=== PATIENT | female | born 1995 | race Caucasian/White ===

== ENCOUNTER → 2019-09-12 17:33 | Outpatient (BNVA) | payer MEDICAID, SELFPAY | PROVIDERS: Family Provider Nurse Practitioner; PCP Nurse Practitioner; Visit Provider Nurse Practitioner | DX: J11.1 Influenza due to unidentified influenza virus with other respiratory manifestations (principal) | CPT/HCPCS: 87804 ==

== ENCOUNTER → 2019-09-17 13:16 | Outpatient (BNVA) | payer MEDICAID, SELFPAY | PROVIDERS: Family Provider Nurse Practitioner; PCP Nurse Practitioner; Visit Provider Nurse Practitioner Women's Health | DX: O99.012 Anemia complicating pregnancy, second trimester (principal); O26.892 Other specified pregnancy related conditions, second trimester; Z67.91 Unspecified blood type, Rh negative; F41.9 Anxiety disorder, unspecified; Z14.1 Cystic fibrosis carrier; O21.9 Vomiting of pregnancy, unspecified; K52.9 Noninfective gastroenteritis and colitis, unspecified; Z3A.16 16 weeks gestation of pregnancy | CPT/HCPCS: 81000 ==

== ENCOUNTER → 2019-10-15 13:03 | Outpatient (BNVA) | payer MEDICAID, SELFPAY | PROVIDERS: Family Provider Nurse Practitioner; PCP Nurse Practitioner; Visit Provider Obstetrics & Gynecology | DX: Z34.82 Encounter for supervision of other normal pregnancy, second trimester (principal) | CPT/HCPCS: 76805; 80048; 84443; 85027 ==

== ENCOUNTER → 2019-10-16 17:14 | Outpatient (BNVA) | payer MEDICAID, SELFPAY | PROVIDERS: Family Provider Nurse Practitioner; PCP Nurse Practitioner; Visit Provider Nurse Practitioner | DX: J45.909 Unspecified asthma, uncomplicated (principal); J45.21 Mild intermittent asthma with (acute) exacerbation; R05 Cough | CPT/HCPCS: 87804 ==

== ENCOUNTER 2019-10-17 11:05 | Outpatient (CLI) | payer MEDICAID, SELFPAY ==
[2019-10-17 12:00] LABS: Add Urine Microscopic? NO
[2019-10-17 12:10] LABS: Bilirubin Urine 1+ (NEGATIVE); Blood Urine Neg (Negative); Glucose Urine UA Norm (Normal); Ketones Urine 1+ (Negative); Leukocyte Esterase Urine Negative (Negative); Nitrate Urine Negative (Negative); Protein Urine Neg (Negative); Specific Gravity, Urine 1.025 (1.005-1.030); Urine Appearance Clear (CLEAR); Urine Color Yellow (Yellow); Urobilinogen Urine 1 mg/dL (Negative); pH Urine 5 (5-7)
--- NOTE | 2019-10-17 12:16 | US_ITS ---
WS: [id number] Limited pelvic ultrasound for cervical length, 10/17/2019 Clinical Data: Cervical length Comparison: OB ultrasound, 10/15/2019 Findings: The cervical length was 4.32 cm. No placenta previa was seen. US/US OB transvaginal [id number] Impression: Cervical length of 4.32 cm.
[2019-10-17 12:25] VITALS: BMI 20.7
[2019-10-17 12:26] VITALS: RESP 16; TEMP 37.1
[2019-10-17 12:50] VITALS: BP 110/56; PULSE 83
--- NOTE | 2019-10-17 12:53 | PC.NURSE ---
Dr. Wong in room and performs a speculum exam as well as endocervical swab. Dr. Wong then performed cervical exam. Dr. Wong then also performed a bedside ultrasound mendes abdominally as well as trans labially.
--- NOTE | 2019-10-17 12:55 | P.TNLD_ITS ---
OB L&D Triage Visit Information: Date of evaluation: 10/17/19 Evaluation: Laboratory results: Laboratory Tests 10/17/19 11:50 Urine Color Yellow Urine Appearance Clear Urine pH 5 Ur Specific Gravit y 1.025 Urine Protein Neg Urine Glucose (UA) Norm Urine Ketones 1+ H Urine Occult Blood Neg Urine Nitrate Negative Urine Bilirubin 1+ H Urine Urobilinogen 1 H Ur Leukocyte Angela ase Negative Vital signs: Vital Signs - 24 hr 10/17/19 12:26 10/17/19 12:50 Temperature 98.7 F Pulse Rate 83 Respiratory Rate 16 Blood Pressure 110/56 Care ARIN Calculator Estimated Delivery Date Method Current WG Current Estimate 03/03/20 LMP (Certain) 20w 2d Comments: 24-year-old lady with EDC of 03/03/2020 based on 6-week ultrasound. Patient has previously been seen at [facility]. Presents to labor and delivery as a walk-in with a complaint of lower back pain since last night states that she has had a watery type discharge and states that she has had some spotting on toilet paper. Denies any fevers question chills. Has had nausea and vomiting this also has history of iron deficiency anemia previous with uterine contractions treated with Procardia delivered at 37 weeks, history of molar , 2 term vaginal deliveries uncomplicated. Was recently seen by her PCP and diagnosed with bronchitis placed on amoxicillin. Is of note HER-2 daughters tested positive for influenza A patient tested negative for influenza A. She reports movement denies any regular uterine contractions. Does have urinary frequency no dysuria no flank pain. Review of systems, unremarkable except for above Patient denies any alcohol tobacco or drug use or HIV risk factors. Allergies see record Medications see record. Physical examination: Vital signs are stable she is afebrile Alert and oriented no acute distress thin white female HEENT grossly normal Neck supple nontender nodes no masses Lungs clear to auscultation Heart regular sinus rhythm Abdomen thin, gravid uterine fundus U- 1 nontender to palpation. No flank tenderness. No palpable contractions. Some mild suprapubic tenderness to palpation Back no CVA tenderness patient's low back pain is located in the upper buttocks bilaterally. Extremities grossly intact no edema Pelvic examination: External genitalia unremarkable, no lesions no blood no discharge. Speculum examination shows normal vaginal vault physiologic type discharge cervix appears to be long and closed no lesions no unusual discharge. Bimanual examination shows cervix to be closed nontender. Ultrasound: Bedside transabdominal ultrasound by me shows viable intrauterine good movement cardiac activity good tone. Normal amniotic fluid placenta is posterior. Transvaginal ultrasound performed by x-ray tech and visualized by myself cervix is long closed measuring 4.1 cm with no funneling. Placenta does appear to be close to if not perhaps laying over the cervical loss would recommend repeat ultrasound in 4 weeks. Labs: Clean-catch UA obtained specific gravity 1025- nitrites negative leukocytes +1 ketones Vaginal/endocervical cultures and GC chlamydia sent. Expected Delivery Route/Plan vaginal Specific Issues/Plans anemia hx uterine contractions OB Visit Log Initial Weight: 50.802 kg Date -?-?-?-?-?-?-?-?-?-?-?- EGA Weight BP Albumin -?-?-?-?-?-?-?-?-?-?-?-?- Glucose Nitrate -?-?-?-?-?-?-?-?-?-?-?-?- Blood Fundal Ht PRES HR Movement Edema Dilation Effacement Station 09/17/19 -?-?-?-?-?-?-?-?-?-?-?- 16w 0d 52.787 kg (+1.984 kg) 100/64 Neg (Negativ e) -?-?-?-?-?-?-?-?-?-?-?-?- Norm (Normal) Negative (Negat manuel) -?-?-?-?-?-?-?-?-?-?-?-?- 152 decreased absent 10/17/19 -?-?-?-?-?-?-?-?-?-?-?- 20w 2d 54.885 kg (+4.082 kg) 110/56 99/65 Neg (Negative) -?-?-?-?-?-?-?-?-?-?-?-?- Norm (Normal) Negative (Negat manuel) -?-?-?-?-?-?-?-?-?-?-?-?- 145 Notes Visit Date: 10/17/19 No visit notes to display Visit Date: 09/17/19 JESIKA @ 16.0 WG - anemia; compliant with iron; reviewed constipation - SAB precautions discussed - Panorama completed - Anatomy scan at next visit; discussed policy Tavia Silveira APN, CJ on 09/17/19 Final Diagnosis Final Diagnosis (1) Antepartum bleeding, second trimester: Plan: Ultrasound today shows possible low-lying posterior placenta recommend repeat ultrasound in 4 weeks. 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 Recommend consideration of sending placenta to pathology Status: Inactive Code(s): O09.A2 - Supervision of with history of molar , second trimester (3) Low lying placenta nos or without hemorrhage, second trimester: Plan: postdelivery patient has had self-described spotting on toilet tissue no active bleeding noted at this time question low-lying placenta recommend continue to follow Status: Acute Code(s): O44.42 - Low lying placenta NOS or without hemorrhage, second trimester Coding Level of Care Code Acute Certified Family Mediator for g Fwd Medical Decision Making Low Complexity Diagnoses Antepartum bleeding, second trimester O46.92 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 Also discussed her anemia recommend consideration of referral to hematology.
[2019-10-17 13:04] VITALS: BP 99/65; PULSE 87
[2019-10-17 13:19] VITALS: BP 98/54; PULSE 75
[2019-10-17 13:36] VITALS: BP 95/66; PULSE 91
== END 2019-10-17 13:39 | disposition home or self-care (01) ==
LOC: OPOB 11:21 → OBGYN 13:30 → OPOB 10-18 07:59 → NUR 10-18 07:59 → OPOB 10-18 08:05
PROVIDERS: Family Provider Nurse Practitioner; PCP Nurse Practitioner; Visit Provider Obstetrics & Gynecology Female Pelvic Medicine and Reconstructive Surgery
DX: O44.42 Low lying placenta NOS or without hemorrhage, second trimester (principal); O09.A2 Supervision of pregnancy with history of molar pregnancy, second trimester
CPT/HCPCS: 12345; 76817; 81003; 87491; 87591; 99211

== ENCOUNTER → 2019-10-18 15:03 | Outpatient (BNVA) | payer MEDICAID, SELFPAY | PROVIDERS: Family Provider Nurse Practitioner; PCP Nurse Practitioner; Visit Provider Obstetrics & Gynecology | DX: Z34.82 Encounter for supervision of other normal pregnancy, second trimester (principal) | CPT/HCPCS: 81000; 81003 ==

== ENCOUNTER 2019-10-24 07:22 | Outpatient (RCR) | payer MEDICAID, SELFPAY ==
[2019-10-24 06:47] VITALS: BMI 20.5
[2019-10-24 07:40] VITALS: BP 104/65; PULSE 95; RESP 18; TEMP 36.8; O2SAT 100
[2019-10-31 07:17] VITALS: BP 108/61; PULSE 104; RESP 16; TEMP 36.8; O2SAT 100
[2019-11-07 07:20] VITALS: BP 121/68; PULSE 85; RESP 18; TEMP 36.1; O2SAT 100
== END 2019-11-09 23:59 | disposition home or self-care (01) ==
LOC: GILAB 07:22
PROVIDERS: Family Provider Nurse Practitioner; PCP Family Medicine; Visit Provider Internal Medicine
DX: K90.9 Intestinal malabsorption, unspecified (principal)
CPT/HCPCS: 96365; J1439

== ENCOUNTER → 2019-11-09 13:58 | Outpatient (BNVA) | payer MEDICAID, SELFPAY | PROVIDERS: Family Provider Nurse Practitioner; PCP Family Medicine; Visit Provider Nurse Practitioner | DX: J06.9 Acute upper respiratory infection, unspecified (principal); R05 Cough | CPT/HCPCS: 87804 ==

== ENCOUNTER → 2019-11-15 14:56 | Outpatient (BNVA) | payer MEDICAID, SELFPAY | PROVIDERS: Family Provider Nurse Practitioner; PCP Family Medicine; Referring Provider Obstetrics & Gynecology; Visit Provider Obstetrics & Gynecology | DX: Z36.89 Encounter for other specified antenatal screening (principal); Z3A.24 24 weeks gestation of pregnancy | CPT/HCPCS: 76816 ==

== ENCOUNTER → 2019-11-19 08:04 | Outpatient (BNVA) | payer MEDICAID, SELFPAY | PROVIDERS: Family Provider Nurse Practitioner; PCP Family Medicine; Visit Provider Obstetrics & Gynecology | DX: O99.340 Other mental disorders complicating pregnancy, unspecified trimester (principal) | CPT/HCPCS: 81003 ==

== ENCOUNTER → 2019-12-16 11:44 | Outpatient (BNVA) | payer MEDICAID, SELFPAY | PROVIDERS: Family Provider Nurse Practitioner; PCP Family Medicine; Visit Provider Obstetrics & Gynecology | DX: Z34.83 Encounter for supervision of other normal pregnancy, third trimester (principal); O26.892 Other specified pregnancy related conditions, second trimester; Z67.91 Unspecified blood type, Rh negative; Z34.90 Encounter for supervision of normal pregnancy, unspecified, unspecified trimester; Z34.82 Encounter for supervision of other normal pregnancy, second trimester; O99.012 Anemia complicating pregnancy, second trimester; Z14.1 Cystic fibrosis carrier; J45.20 Mild intermittent asthma, uncomplicated; F32.9 Major depressive disorder, single episode, unspecified; F41.9 Anxiety disorder, unspecified | CPT/HCPCS: 81000; 82950; 85027; 86850 ==

== ENCOUNTER → 2019-12-31 15:28 | Outpatient (BNVA) | payer MEDICAID, SELFPAY | PROVIDERS: Family Provider Nurse Practitioner; PCP Family Medicine; Visit Provider Obstetrics & Gynecology | DX: Z34.83 Encounter for supervision of other normal pregnancy, third trimester (principal) | CPT/HCPCS: 81000 ==

== ENCOUNTER 2020-01-11 13:18 | Emergency (ER) | payer MEDICAID, SELFPAY ==
[2020-01-11 13:24] VITALS: BP 101/67; PULSE 106; RESP 18; TEMP 36.9; O2SAT 97; BMI 22.3
[2020-01-11 13:29] VITALS: BP 105/64; PULSE 83; RESP 18; O2SAT 97
--- NOTE | 2020-01-11 13:40 | W.ED.GENADLT ---
HPI - General Adult General: Chief complaint: General Medical Stated complaint: SENT BY DOCTOR Time Seen by Provider: 01/11/20 13:32 Source: patient Mode of arrival: ambulatory Limitations: no limitations History of Present Illness: HPI narrative: 24-year-old female who is currently 35 weeks states she has had a hemorrhoid. She states she has been having some pain with a hemorrhoid. Denies any fevers. She has no complaints. Severity scale (1-10): 3 Quality: sharp Relieving factors: none Exacerbating factors: none Associated symptoms: Deny chest pain, dyspnea, headache(s) or rash Review of Systems Const: Denies: fever, chills, body aches or change in appetite Eyes: Denies: blurry vision or eye discomfort ENMT: Denies: throat pain or dental pain Card: Denies: chest pain Resp: Denies: shortness of breath GI: Reports: painful bowel movements : Denies: painful urination Musc: Denies: neck pain or back pain Skin/Breast: Denies: rash Neuro: Denies: headache Psych: Denies: depression Ish/Lymph: Denies: easy bruising All/Imm: Denies: hives PFSH ED PFSH: Social History Smoking and tobacco status: never smoked Alcohol intake: former Additional social history: - Tobacco Use: Smoked socially for three months in 2012; denies any tobacco use since then Drug Use: Denies Alcohol Use: Social alcohol use prior to Work/Study Status: Stay at home mother Physical Exam Const: COMMON NORMALS: no apparent distress, oriented x3 and healthy appearing HENMT: COMMON NORMALS: normocephalic and head/scalp atraumatic HEAD & SCALP: normocephalic and atraumatic Eye: COMMON NORMALS: PERRL and EOMs intact bilaterally PUPIL: Yes PERRL Neck/C-Spine: COMMON NORMALS: full ROM and supple Chest: COMMONS NORMALS: inspection of chest normal and palpation of chest normal Resp: COMMON NORMALS: normal respiratory effort, no retractions, no use of accessory muscles and clear to auscultation bilaterally AUSCULTATION: clear to auscultation bilaterally Cardio: COMMON NORMALS: regular rate, regular rhythm and no murmurs RATE: regular rate RHYTHM: regular rhythm GI: COMMON NORMALS: normal to inspection, nondistended, normoactive bowel sounds, soft to palpation, non-tender and no masses PALPATION: Yes soft OTHER: 1 hemorrhoid noted that is nonthrombosed. Extremity: COMMON NORMALS: normal to inspection and full ROM Neuro: COMMON NORMALS: oriented x3, moves all extremities and no focal motor deficits Psych: COMMON NORMALS: mental status grossly normal, thought process normal and cooperative THOUGHT PROCESS: normal thought process Skin: COMMON NORMALS: no rashes or lesions noted and no wounds GENERAL SKIN EXAM: no rashes or lesions noted Course Vital Signs: Vital signs: Vital Signs Temperature 98.4 F 01/11/20 13:24 Pulse Rate 83 01/11/20 13:29 Respiratory Rate 18 01/11/20 13:29 Blood Pressure 105/64 01/11/20 13:29 Pulse Oximetry 97 01/11/20 13:29 MDM - General Adult MDM Narrative: Medical decision making narrative: Patient presents here with hemorrhoid that is not thrombosed. She has no complaints. Will place patient on Anusol and she is to take stool softeners [id number]. She is stable for discharge and return if worsening. Discharge Plan Discharge Patient Disposition: Home, Self-Care Clinical Impression: Hemorrhoid Qualifiers: Hemorrhoid type: unspecified Qualified Code(s): K64.9 - Unspecified hemorrhoids Condition: Stable Prescriptions: New Anusol-HC 2.5 % cream with perineal applicator 1 applic [place] Q8H PRN (Reason: hemorrhoids) 21 Days Qty: 30 RF: 1 No Action albuterol sulfate 2.5 mg /3 mL (0.083 %) solution for nebulization 2.5 mg INHALATION Q4H PRN (Reason: shortness of breath or wheezing) Qty: 90 RF: 0 albuterol sulfate [ProAir HFA] 90 mcg/actuation HFA aerosol inhaler See Rx Instructions INHALATION .COMPLEX PRN (Reason: shortness of breath or wheezing) Qty: 8.5 RF: 0 prenat.vits,gualberto,qhi-khui-whqoj Tablet 1 tab PO ONCE RF: 0 omeprazole 20 mg capsule,delayed release(DR/EC) 20 mg PO DAILY Qty: 30 RF: 0 Discharge Orders: Discharge Order (Routine); Ordered 01/11/20 Ordered By: Prachi Stark Referrals: Samra Montgomery FNP [Family Provider] - Gui Escalera MD [Primary Care Provider] - Discharge Diet: Advance as tolerated Discharge Activity: Resume usual activity Patient Instructions: Hemorrhoids (ED) Coding Level of Care Code ED Orthotic And Prosthetic Technician for Adelina Ahuja
== END 2020-01-11 13:49 | disposition home or self-care (01) ==
LOC: ER 14:06
PROVIDERS: Emergency Provider Emergency Medicine; Family Provider Nurse Practitioner; PCP Family Medicine
DX: O22.43 Hemorrhoids in pregnancy, third trimester (principal); Z3A.35 35 weeks gestation of pregnancy; Z87.891 Personal history of nicotine dependence
CPT/HCPCS: 12345; 99282

== ENCOUNTER → 2020-01-13 15:38 | Outpatient (BNVA) | payer MEDICAID, SELFPAY | PROVIDERS: Family Provider Nurse Practitioner; PCP Family Medicine; Visit Provider Obstetrics & Gynecology | DX: O09.893 Supervision of other high risk pregnancies, third trimester (principal); K64.9 Unspecified hemorrhoids; O99.119 Other diseases of the blood and blood-forming organs and certain disorders involving the immune mechanism complicating pregnancy, unspecified trimester; D69.6 Thrombocytopenia, unspecified; F41.9 Anxiety disorder, unspecified; F32.9 Major depressive disorder, single episode, unspecified; R51 Headache; J45.20 Mild intermittent asthma, uncomplicated; Z14.1 Cystic fibrosis carrier | CPT/HCPCS: 81000 ==

== ENCOUNTER → 2020-01-27 16:14 | Outpatient (BNVA) | payer MEDICAID, SELFPAY | PROVIDERS: Family Provider Nurse Practitioner; PCP Family Medicine; Visit Provider Obstetrics & Gynecology | DX: D69.6 Thrombocytopenia, unspecified (principal); O99.119 Other diseases of the blood and blood-forming organs and certain disorders involving the immune mechanism complicating pregnancy, unspecified trimester; O09.893 Supervision of other high risk pregnancies, third trimester; F41.9 Anxiety disorder, unspecified; F32.9 Major depressive disorder, single episode, unspecified; R51 Headache; J45.20 Mild intermittent asthma, uncomplicated; Z14.1 Cystic fibrosis carrier; K90.9 Intestinal malabsorption, unspecified; O99.012 Anemia complicating pregnancy, second trimester; O26.892 Other specified pregnancy related conditions, second trimester | CPT/HCPCS: 81000; 85025 ==

== ENCOUNTER → 2020-02-05 16:01 | Outpatient (BNVA) | payer MEDICAID, SELFPAY | PROVIDERS: Family Provider Nurse Practitioner; PCP Family Medicine; Visit Provider Obstetrics & Gynecology | DX: O09.893 Supervision of other high risk pregnancies, third trimester (principal); Z3A.00 Weeks of gestation of pregnancy not specified | CPT/HCPCS: 81000; 87081 ==

== ENCOUNTER 2020-02-07 14:27 | Outpatient (CLI) | payer MEDICAID, SELFPAY ==
[2020-02-07] VITALS (8 sets, daily range): BP systolic 0–118; BP diastolic 0–68; PULSE 81–120; RESP 16; TEMP 36.3; BMI 23.3
[2020-02-07 15:05] LABS: Nitrazine Paper, PH Negative
[2020-02-07 15:22] LABS: Actim Prom Negative
[2020-02-07 15:37] LABS: Bilirubin Urine Neg (NEGATIVE); Blood Urine Neg (Negative); Glucose Urine UA Norm (Normal); Ketones Urine Negative (Negative); Leukocyte Esterase Urine 1+ (Negative); Nitrate Urine Negative (Negative); Protein Urine Neg (Negative); Urine Appearance Clear (CLEAR); Urine Color Yellow (Yellow); Urobilinogen Urine Norm (Negative); pH Urine 7 (5-7)
[2020-02-07 15:38] LABS: Add Urine Culture? No; Bacteria Urine TRACE; RBC Urine 0-4 /hpf (0-2); WBC Urine 15-25 /hpf (0-5)
[2020-02-07] MEDS: terbutaline 1 mg/mL INJ 0.25 MG SUBCUT (15:52)
== END 2020-02-07 17:00 | disposition home or self-care (01) ==
LOC: OPOB 14:29 → OBGYN 14:30
PROVIDERS: Obstetrics & Gynecology; PCP Family Medicine; Visit Provider Obstetrics & Gynecology
DX: O26.899 Other specified pregnancy related conditions, unspecified trimester (principal); Z3A.00 Weeks of gestation of pregnancy not specified; R10.9 Unspecified abdominal pain
CPT/HCPCS: 59025; 81001; 83986; 84112; 96372; 99211; J3105

== ENCOUNTER → 2020-02-10 15:38 | Outpatient (BNVA) | payer MEDICAID, SELFPAY | PROVIDERS: PCP Family Medicine; Visit Provider Obstetrics & Gynecology | DX: O09.893 Supervision of other high risk pregnancies, third trimester (principal); O99.119 Other diseases of the blood and blood-forming organs and certain disorders involving the immune mechanism complicating pregnancy, unspecified trimester; D69.6 Thrombocytopenia, unspecified; F41.9 Anxiety disorder, unspecified; F32.9 Major depressive disorder, single episode, unspecified; R51 Headache; J45.20 Mild intermittent asthma, uncomplicated; Z14.1 Cystic fibrosis carrier; K90.9 Intestinal malabsorption, unspecified; O99.012 Anemia complicating pregnancy, second trimester; O26.892 Other specified pregnancy related conditions, second trimester; Z67.91 Unspecified blood type, Rh negative; Z3A.00 Weeks of gestation of pregnancy not specified | CPT/HCPCS: 81000 ==

== ENCOUNTER 2020-02-12 17:36 | Outpatient (CLI) | payer MEDICAID, SELFPAY ==
[2020-02-12] VITALS (7 sets, daily range): BP systolic 0–108; BP diastolic 0–78; PULSE 72–112; RESP 16; TEMP 36.8; BMI 23.0
== END 2020-02-12 19:45 | disposition home or self-care (01) ==
LOC: OPOB 17:36 → OBGYN 19:41
PROVIDERS: PCP Family Medicine; Visit Provider Obstetrics & Gynecology
DX: O62.2 Other uterine inertia (principal); Z3A.00 Weeks of gestation of pregnancy not specified
CPT/HCPCS: 59025; 99211

== ENCOUNTER 2020-02-16 19:28 | Inpatient (IN) | payer MEDICAID, SELFPAY ==
[2020-02-16] VITALS (27 sets, daily range): BP systolic 0–131; BP diastolic 0–77; PULSE 63–102; RESP 15–16; TEMP 36.6–37; BMI 23.0
--- NOTE | 2020-02-16 18:10 | PC.NURSE ---
Pt up to bathroom at this time. Pt reports having something running down her leg when standing up, but is unable to tell if it is urine or amniotic fluid.
--- NOTE | 2020-02-16 18:31 | P.PCN_ITS ---
Procedure/Consent Procedure Narrative: NONSTRESS TEST: Place of test: [facility] [place]-L&D Indication: 25-year-old 6 para 2-0-3-2 at 37 weeks and 5 days gestation, abdominal pain, Date and time of test: 02/16/2020, 4:45 PM Baseline: 130 Variability: Moderate variability Accelerations: Accelerations present Decelerations: No decelerations Tocometry: Contractions every 2 to 4 minutes INTERPRETATION: NST reactive, reassuring status, continue kick counts
[2020-02-16 18:44] LABS: Actim Prom Positive
[2020-02-16] MEDS: lactated ringers 1,000 ML 999 ML IV (20:19)
[2020-02-16 20:46] LABS: Basophils % 0.2 %; Eosinophils # 0.1 10^3/uL (0.0-0.8); Eosinophils % 0.7 %; Hematocrit 44.5 % (37.0-47.0); Hemoglobin 14.6 g/dL (11.5-15.3); Lymphocytes # 1.7 10^3/uL (0.8-4.8); Lymphocytes % 16.5 %; Mean Corpuscular HGB Conc 32.8 g/dL (30.0-36.0); Mean Corpuscular Hemoglobin 31.1 pg (28.0-34.0); Mean Corpuscular Volume 94.9 fL (81-99); Mean Platelet Volume 10.5 fL (7.4-10.4); Monocytes # 0.5 10^3/uL (0.2-0.9); Monocytes % 5.4 %; Neutrophils # 7.7 10^3/uL (1.8-7.7); Neutrophils % 76.5 %; Nucleated Red Blood Cells % 0 %; Platelet Count 131 10^3/cmm (130-400); Red Blood Count 4.69 10^6/uL (4.1-5.3); Red Cell Distribution Width 13.1 % (12.1-15.1)
[2020-02-17] VITALS (51 sets, daily range): BP systolic 0–121; BP diastolic 0–82; PULSE 53–92; RESP 14–22; TEMP 36.4–37; O2SAT 72–99
[2020-02-17] MEDS: dextrose 5%-lactated ringers 1,000 ML 125 ML IV (01:30)
[2020-02-17] MEDS: fentaNYL 50 mcg/mL INJ 2mL IV ×3 (01:37→08:15)
[2020-02-17] MEDS: oxytocin 30 UNIT/500 ML BAG IV (04:35)
[2020-02-17] MEDS: lactated ringers 1,000 ML 999 ML IV (08:52)
[2020-02-17] MEDS: acetaminophen 325 mg Tablet 650 MG PO ×2 (11:27→17:52)
--- NOTE | 2020-02-17 11:29 | PM.DELIVERY ---
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 Mcgarry is a 25-year-old 6 para 2-0-3-2 at 37 weeks and 5 days gestation who presented to labor and delivery on 02/16/2020 with reports of contractions. On initial evaluation she was noted to be 1 cm, 40% effaced and -1 station with a posterior cervix which was minimal change compared to when she was seen in the clinic a week before. tracing was category 1 with regular contractions every 2 to 3 minutes. She was observed for 3 hours and made no cervical change however did mention leaking of fluid and active PROM test performed was positive-spontaneous rupture of membranes/premature rupture of membranes was at 6:10 PM on 02/16/2020.. She continued to contract every 2 to 4 minutes and made minimal cervical change to 2 cm 40% and -1 station. tracing continued to do category 1 with occasional variable decelerations which resolved with position change. She made no further cervical change after about 6 hours of observation and as a result Pitocin was started at 4 AM titrated to a maximum of 13 mIU. With this she started to grow more uncomfortable and was 4 cm at 6:45 AM on 02/17/2020. She was noted to have a fore bag at this time and rupture of this fore back was performed at 7:30 AM on 02/17/2020 with clear fluid. She was 5 cm 80% and -1 station at this time. She made rapid cervical change and was fully dilated at 9:30 AM and +1 station ready to push. tracing was category 1 thus far. DELIVERY NOTE: She was set up in lithotomy position and was pushing effectively. She was noted to be +3 station and continued pushing well. The head delivered in SAMANTHA position, nuchal cord x1 was present and was loose. The shoulders and rest of the body followed with her next push and delivered through the cord without any difficulty. The baby's mouth and nose were suctioned and the baby was placed on the mother's belly. Once cord pulsations stopped the cord was clamped and cut. The placenta delivered spontaneously intact with membranes and was discarded. The fundus was noted to be firm and well contracted. The vagina and cervix were inspected and no cervical or sulcal lacerations were noted. The perineum was intact except for periurethral tear which was hemostatic and not repaired. Baby girlAudra born at 9:43 AM on 02/17/2020 with 9/9, weighing 6 pounds 14 ounces, 3130 g, 19 inches long. Placenta was delivered spontaneously intact with membranes at 9:49 AM. Cotyledons were intact , centrally inserted umbilical cord with 3 vessels noted. Estimated blood loss 200 mL. Complications-none, both baby and mother were left to recovery in a stable condition. Coding Level of Care Code Acute Tank Terminal Gauger for [facility] Fw History History History 6 Term 3 Miscarriages/Ectopic 3 0 Living Children 3 Other History: - X 3 SAB X 3, D&C x 1 1----> 02/13/2014. Female (Nataly), 6 lbs. 3-1/2 oz., 37-3/7 weeks gestation. Epidural. Vaginal delivery. Delivered by Dr. Parsons at [facility] in [place], [place]. Complicated by: contractions treated with Procardia; Had bleeding until 23 weeks. 2----> 04/2014. SAB, no D&C needed. States had heavy bleeding 6-8 weeks after delivery and was told probably miscarried. No lab work done to confirm . 3-----> 01/21/2016. Missed at 9 weeks. Treated by D&C. Pathology showed partial hydatidiform mole. Patient will perform serial beta-hCGs and they have been negative. 4-----> 12/2016. SAB, no D&C. Highest beta hCG was 100. 5-----> 11/21/2017. Female (Nancy), 8 lbs. 10 oz., 38-6/7 weeks gestation. Epidural. Vaginal delivery. Delivered by Dr. Holman at [facility] in [place], [place]. Complicated by: Gestational thrombocytopenia. 6----> 02/17/2020, female(Audra coats), PPROM at 37 weeks and 6 days, vaginal delivery of a 6 pound 14 ounce baby over intact perineum. Delivered by Dr. Holman at [facility] [place]. Mild gestational thrombocytopenia-lowest 131,000.
--- NOTE | 2020-02-17 11:44 | PC.NURSE ---
Call Dr. Holman to report pt requesting pain mediation. Pt reports she has had oxtcodone/percocet before and had no issues. Pt reports her reaction to hydrocodone is itching. Dr. Holman okayed order for one time dose of percocet 5/325 mg
[2020-02-17] MEDS: lanolin oint 7 gm 1 APPLIC TOPICAL (11:54)
[2020-02-17] MEDS: oxyCODONE-APAP 5-325 mg Tablet 1 TAB PO (12:03)
[2020-02-17] MEDS: prenatal vitamin Capsule 1 CAP PO (12:03)
[2020-02-17] MEDS: docusate sodium 100 mg Capsule PO (17:54)
[2020-02-17 23:56] LABS: Hematocrit 39.5 % (37.0-47.0); Mean Corpuscular HGB Conc 32.9 g/dL (30.0-36.0); Mean Corpuscular Hemoglobin 30.2 pg (28.0-34.0); Mean Corpuscular Volume 91.6 fL (81-99); Mean Platelet Volume 11.1 fL (7.4-10.4); Platelet Count 139 10^3/cmm (130-400); Red Blood Count 4.31 10^6/uL (4.1-5.3); Red Cell Distribution Width 12.8 % (12.1-15.1); White Blood Count 9.5 10^3/uL (4.0-10.0)
[2020-02-18 03:45] VITALS: BP 106/74; PULSE 90; RESP 17; O2SAT 96
--- NOTE | 2020-02-18 07:31 | P.DS_ITS ---
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 Mcgarry is a 25-year-old 6 para 2-0-3-2 at 37 weeks and 5 days gestation who presented to labor and delivery on 02/16/2020 with reports of contractions. On initial evaluation she was noted to be 1 cm, 40% effaced and - 1 station with a posterior cervix which was minimal change compared to when she was seen in the clinic a week before. tracing was category 1 with regular contractions every 2 to 3 minutes. She was observed for 3 hours and made no cervical change however did mention leaking of fluid and active PROM test performed was positive-spontaneous rupture of membranes/premature rupture of membranes was at 6:10 PM on 02/16/2020.. She continued to contract every 2 to 4 minutes and made minimal cervical change to 2 cm 40% and -1 station. tracing continued to do category 1 with occasional variable decelerations which resolved with position change. She made no further cervical change after about 6 hours of observation and as a result Pitocin was started at 4 AM titrated to a maximum of 13 mIU. With this she started to grow more uncomfortable and was 4 cm at 6:45 AM on 02/17/2020. She was noted to have a fore bag at this time and rupture of this fore back was performed at 7:30 AM on 02/17/2020 with clear fluid. She was 5 cm 80% and -1 station at this time. She made rapid cervical change and was fully dilated at 9:30 AM and +1 station ready to push. tracing was category 1 thus far. DELIVERY NOTE: She was set up in lithotomy position and was pushing effectively. She was noted to be +3 station and continued pushing well. The head delivered in SAMANTHA position, nuchal cord x1 was present and was loose. The shoulders and rest of the body followed with her next push and delivered through the cord without any difficulty. The baby's mouth and nose were suctioned and the baby was placed on the mother's belly. Once cord pulsations stopped the cord was clamped and cut. The placenta delivered spontaneously intact with membranes and was discarded. The fundus was noted to be firm and well contracted. The vagina and cervix were inspected and no cervical or sulcal lacerations were noted. The perineum was intact except for periurethral tear which was hemostatic and not repaired. Baby Audra mcneal born at 9:43 AM on 02/17/2020 with 9/9, weighing 6 pounds 14 ounces, 3130 g, 19 inches long. Placenta was delivered spontaneously intact with membranes at 9:49 AM. Cotyledons were intact , centrally inserted umbilical cord with 3 vessels noted. Estimated blood loss 200 mL. HOSPITAL COURSE: She underwent an uncomplicated vaginal delivery 02/17/2020 . She did well on day 0 and was ambulating well, tolerating regular diet, voiding freely, passing flatus. She was breast-feeding without difficulty and bonding well with her daughter. Pain was well-controlled with by mouth pain medication. She denied nausea, vomiting, fever, chills, shortness of breath, leg pain. She had moderate vaginal bleeding. On day #1 she continued to do well with stable vital signs and stable hemoglobin at 13. She was discharged home on day 1 in a stable condition, as she desired early discharge. Warning signs for endometritis, mastitis, DVT/PE were reviewed with her. Post delivery activity restrictions were also reviewed with her at all her questions were answered to her satisfaction. She plans on using Depo-Provera for contraception which was given to her on 02/18/2020 prior to discharge EXAM AT DISCHARGE: Gen.: No acute distress Heart: S1-S2 heard, regular rate and rhythm Lungs: Clear to auscultation bilaterally Abdomen: Soft, fundus firm below umbilicus Legs: No calf tenderness, trace bilateral pitting pedal edema. CONDITION AT DISCHARGE: Stable Discharge Data Data Completed and Pending: Pending at discharge Category Date Time Status Antibody Identifi cation Routine Lab 02/16/20 20:25 Results Complete Crossmat ch Routine Lab 02/16/20 20:25 Results Rho D Immune Glob ulin Routine Lab 02/16/20 20:25 Results Type and Screen R outine Lab 02/16/20 20:25 Results Labs from last 24 hours 02/17/20 02/17/20 02/16/20 23:44 23:44 20:25 WBC 9.5 RBC 4.31 Hgb 13.0 Hct 39.5 MCV 91.6 MCH 30.2 MCHC 32.9 RDW 12.8 Plt Count 139 MPV 11.1 H Blood Type B Negative Rho(D) Type Negative Antibody Screen Positive Antibody Identific ation Anti-D Screen Negative Vitals: Last Vital Signs Temp 97.5 F L 02/17/20 19:45 Pulse 90 02/18/20 03:45 Resp 17 02/18/20 03:45 BP 106/74 02/18/20 03:45 Pulse Ox 96 02/18/20 03:45 Discharge Plan Discharge Patient Disposition: Home, Self-Care Condition: Stable Prescriptions: New docusate sodium 100 mg Capsule 100 mg PO BID PRN (Reason: constipation) Qty: 30 RF: 0 ibuprofen 800 mg tablet 800 mg PO Q8H Qty: 30 RF: 0 Continued albuterol sulfate 2.5 mg /3 mL (0.083 %) solution for nebulization 2.5 mg INHALATION Q4H PRN (Reason: shortness of breath or wheezing) Qty: 90 RF: 0 albuterol sulfate [ProAir HFA] 90 mcg/actuation HFA aerosol inhaler See Rx Instructions INHALATION .COMPLEX PRN (Reason: shortness of breath or wheezing) Qty: 8.5 RF: 0 Zyrtec 10 mg capsule 10 mg PO DAILY RF: 0 prenat.vits,gualberto,vkw-brlg-sijwo Tablet 1 tab PO ONCE RF: 0 Anusol-HC 2.5 % cream with perineal applicator 1 applic [place] Q8H PRN (Reason: hemorrhoids) 21 Days Qty: 30 RF: 1 Discharge Orders: Discharge Order (Routine); Ordered 02/18/20 Ordered By: Emily Okeefe Referrals: Emily Okeefe MD [Physician] - (6-week visit with Dr. Holman) Activity Restrictions/Additional Instructions: Pelvic rest for 6 weeks, no heavy lifting for 6 weeks Discharge Attestations Time Spent in Discharge Care*: greater than 30 min Quality Metrics Clinical Quality Measures During this hospital stay, did patient experience: None Coding Level of Care Code Acute Device Engineer for Adelina Ahuja
[2020-02-18 09:55] VITALS: BP 103/69; PULSE 66; RESP 17; TEMP 36.9
[2020-02-18] MEDS: docusate sodium 100 mg Capsule PO (09:58)
[2020-02-18 10:15] VITALS: BP 103/69; PULSE 66; RESP 17; TEMP 36.9
--- NOTE | 2020-02-18 11:32 | PC.NURSE ---
Rhogam Rhogam given at 0955, was scanned late and would not allow time to be changed. Name and and blood band number was verifed with pt.
== END 2020-02-18 10:45 | disposition home or self-care (01) | DRG 806 ==
LOC: OPOB 19:29 → OBGYN 19:29
PROVIDERS: Admitting Provider Obstetrics & Gynecology; PCP Family Medicine; Visit Provider Obstetrics & Gynecology
DX: O99.344 Other mental disorders complicating childbirth (principal); O36.0930 Maternal care for other rhesus isoimmunization, third trimester, not applicable or unspecified; Z37.0 Single live birth; O99.834 Other infection carrier state complicating childbirth; O99.12 Other diseases of the blood and blood-forming organs and certain disorders involving the immune mechanism complicating childbirth; O42.02 Full-term premature rupture of membranes, onset of labor within 24 hours of rupture; F41.8 Other specified anxiety disorders; D69.6 Thrombocytopenia, unspecified; O69.2XX0 Labor and delivery complicated by other cord entanglement, with compression, not applicable or unspecified; O99.02 Anemia complicating childbirth; D64.9 Anemia, unspecified; Z3A.37 37 weeks gestation of pregnancy; O75.89 Other specified complications of labor and delivery; J45.20 Mild intermittent asthma, uncomplicated; Z79.51 Long term (current) use of inhaled steroids
CPT/HCPCS: 12345; 36415; 59025; 59409; 80500; 84112; 85025; 85027; 85460; 86850; 86870; 86900; 90384; 96372; 96374; 96375; 98960; 99211; J3010

== ENCOUNTER → 2020-08-29 16:01 | Outpatient (BNVA) | payer MEDICAID, SELFPAY | PROVIDERS: PCP Family Medicine; Visit Provider Nurse Practitioner | DX: J45.909 Unspecified asthma, uncomplicated (principal); R05 Cough | CPT/HCPCS: 71046 ==

== ENCOUNTER → 2020-09-15 11:15 | Outpatient (BNVA) | payer MEDICAID, SELFPAY | PROVIDERS: PCP Family Medicine; Visit Provider Obstetrics & Gynecology | DX: R23.2 Flushing (principal) | CPT/HCPCS: 84443 ==

== ENCOUNTER 2021-02-25 14:17 | Emergency (ER) | payer MEDICAID, SELFPAY ==
[2021-02-25 14:28] VITALS: BP 105/74; PULSE 116; RESP 16; TEMP 37.1; O2SAT 95; BMI 17.2
--- NOTE | 2021-02-25 14:42 | XR_ITS ---
WS: [id number] Exam: XR chest 1V portable [id number] Date/Time of Exam: 02/25/2021 2:49 PM Reason For Exam: wheeze Comparison 08/29/2020. Findings: The lungs are clear and fully expanded. Costophrenic angles are sharp. No infiltrates. Bronchovascula r relief appears normal. Cardiac silhouette is unremarkable. Bony elements are intact. XR/XR chest 1V portable [id number] IMPRESSION: Unremarkable chest radiograph.
--- NOTE | 2021-02-25 14:47 | W.ED.GENADLT ---
HPI - General Adult General: Chief complaint: General Medical Stated complaint: FEVER,TICK WITH HER Time Seen by Provider: 02/25/21 14:38 History of Present Illness: HPI narrative: Patient recently treated for mastitis. Patient finished a round of Keflex. Patient said now she has had a fever and muscle aches chills. Said she had a tick on her left torso the other dates that removed and being a [employer] tick which she brought with her. Said possibility that her symptoms she has now are consistent with tick fever she had in the past. Says she saw Dr. varma in the other day and said her mastitis was much better. Denies any breast tenderness today. Onset (ago): day(s) Severity: mild Associated symptoms: Reports fevers/chills; Deny chest pain, dyspnea, headache(s), nausea, rash or vomiting Review of Systems Const: Reports: fever(s), chills and body aches Eyes: Denies: change in vision or blurry vision ENMT: Denies: throat pain or nasal congestion Card: Denies: chest pain or dyspnea on exertion Resp: Denies: dyspnea, productive cough or non-productive cough GI: Denies: abdominal pain, nausea or vomiting Musc: Denies: extremity pain Skin/Breast: Reports: other (Recent tick bite approximately 10 days ago); Denies: rash Neuro: Denies: headache(s) Psych: Denies: anxiety or depression Ish/Lymph: Denies: easy bruising [facility] ED PFSH: Medical History Anxiety and depression Has a lot of anxiety as well as depression especially . Has been on and off various medications in the past and always stops them as she feels better. Does not have a therapist. Has not followed up with behavioral health care despite recommendation Asthma Reports being diagnosed with asthma as a child. Has been using albuterol inhaler as needed during the . Colitis 08/23/2019: had been having problems with bloody diarrhea and was in the process of being evaluated for colitis when found out she was . was scheduled for colonoscopy. Reports was told either has Crohn's or ulcerative colitis based upon symptoms and stool test. Was being treated with Protonix and Lexapro before finding out was . Had been on steroids during the summer preceding the . 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 Reports her partner has been tested negative. History of molar (01/21/16) 01/21/2016: Identified on path from D&C. Followed with serial hCGs. Had repeat D&C in 2017 in [place] due to leftover molar tissue . No pertinent past medical history Denies diabetes, seizures, DVT/PE. PMD: none Surgical History History of appendectomy (~12/2009) Open procedure via right lower quadrant incision History of breast augmentation (~03/2016) Bilateral silicone gel implants, placed below muscle History of dilation and curettage (01/21/16) Diagnoses: Missed at [address] Varma at [facility]. Pathology showed partial molar . History of hysteroscopy (~2016) With D&C. Performed in [place] by Dr. Contreras. States was due to leftover molar tissue . History of oral surgery (~2010) [place] teeth removed Hx of tonsillectomy (~2004) With adenoidectomy Family History Mother Stroke Grandfather Diabetes Maternal Hypertension Maternal Family/Other Diabetes Paternal aunt Grandmother Hypertension Maternal Social History (Updated 09/29/20 @ 17:39 by Emily Okeefe MD) Smoking and tobacco status: never smoked Alcohol intake: former Additional social history: - Physical Exam Const: COMMON NORMALS: no acute distress, average body habitus and patient oriented x3 HENMT: COMMON NORMALS: normocephalic HEAD & SCALP: normal to inspection and normocephalic FACE & SINUS: normal facial exam Eye: COMMON NORMALS: conjunctivae normal GENERAL EYE: appearance normal, both eyes and all related structures CONJUNCTIVA: Yes conjunctivae normal Neck/C-Spine: COMMON NORMALS: no JVD Chest: COMMONS NORMALS: normal inspection of the chest Resp: COMMON NORMALS: normal respiratory effort and clear to auscultation bilaterally AUSCULTATION: clear to auscultation bilaterally Cardio: COMMON NORMALS: no JVD, regular rate and regular rhythm RATE: regular rate RHYTHM: regular rhythm GI: COMMON NORMALS: Normal to inspection, nondistended, normoactive bowel sounds present Extremity: COMMON NORMALS: normal to inspection and full ROM Neuro: COMMON NORMALS: patient oriented x3 Skin: NARRATIVE SKIN EXAM: No redness down to where the tick was pulled off does have slight small scar there. No swelling no lymphadenopathy noted. Course Vital Signs: Vital signs: Vital Signs Temperature 98.7 F 02/25/21 14:28 Pulse Rate 74 02/25/21 15:00 Respiratory Rate 16 02/25/21 15:00 Blood Pressure 105/74 02/25/21 15:00 Pulse Oximetry 98 02/25/21 15:00 MDM - General Adult MDM Narrative: Medical decision making narrative: Chest x-ray is fine tick bite does not seem to be the problem from what I can tell on physical exam. Patient recently treated for mastitis she said her breast are not hurting more but more likely might be the cause of her symptoms she is to follow-up Dr. Rodríguez Discharge Plan Discharge Patient Disposition: Home Clinical Impression: Fever Qualifiers: Fever type: due to other condition Qualified Code(s): R50.81 - Fever presenting with conditions classified elsewhere Condition: Stable Prescriptions: New Augmentin 875-125 mg tablet 1 tab PO BID Qty: 14 RF: 0 No Action ibuprofen 800 mg tablet 800 mg PO Q8H RF: 0 citalopram 20 mg tablet 20 mg PO DAILY Qty: 30 RF: 0 prenat.vits,gualberto,[id number]-mkje-utylt Tablet 1 tab PO ONCE RF: 0 albuterol sulfate 2.5 mg/0.5 mL solution for nebulization 10 mg inhalation Q4H PRNRF: 0 Discharge Orders: Discharge ED (Routine); Ordered 02/25/21 Ordered By: Kirk Burton Referrals: Chanell Urban FNP [Primary Care Provider] - Discharge Diet: Usual diet Discharge Activity: Increase activity as tolerated Patient Instructions: Fever in Adults (ED) Activity Restrictions/Additional Instructions: Follow-up with medical provider as directed. Take medications as prescribed. Return to the ER or your medical provider if condition worsens. Please read and understand discharge instructions. If any questions ask please. Coding Level of Care Code ED Senior Compliance Officer for Adelina Fwd Exam Comprehensive
[2021-02-25 15:00] VITALS: BP 105/74; PULSE 74; RESP 16; O2SAT 98
== END 2021-02-25 15:08 | disposition home or self-care (01) ==
PROVIDERS: Emergency Provider Nurse Practitioner Family; PCP Nurse Practitioner Family
DX: R50.9 Fever, unspecified (principal)
CPT/HCPCS: 71045; 99282

== ENCOUNTER → 2021-05-03 16:00 | Outpatient (BNVA) | payer MEDICAID, SELFPAY | PROVIDERS: PCP Nurse Practitioner Family; Visit Provider Internal Medicine | DX: Z01.812 Encounter for preprocedural laboratory examination (principal); R63.4 Abnormal weight loss; K92.1 Melena | CPT/HCPCS: 80053; 82607; 82746; 83550; 84443; 85045; 85651; 86140; 87635 ==

== ENCOUNTER 2021-05-07 09:18 | Day surgery (SDC) | payer MEDICAID, SELFPAY ==
[2021-05-04 13:41] VITALS: BMI 17.2
--- NOTE | 2021-05-07 09:54 | ANES.PREANE2 ---
Pre-Anesthetic Assessment Pre-Anesthetic Assessment: Height/Weight: Height 1.63 m Weight 45.359 kg Proposed Procedure: Operation Date: 05/07/21 11:30 Proposed Procedures p EGD/colon 74809 [id number] R63.4(Not Applicable) - Yazan Madden MD s Colonoscopy(Not Applicable) - Yazan Madden MD Was Beta Manav taken within 24 hours: N/A Was Clonidine taken within 24 hours: N/A Social: Social History: No alcohol and No tobacco Comment: Vapdash lacey Exam: Pre-Anes Outpt Exam: alert, oriented x 3, clear to auscultation bilaterally and regular rate & rhythm Airway: Submandibular: WNL Cervical ROM: WNL MP: 2 Dentition: Full Pulmonary: Pulmonary: Asthma GI: Comments: Colitis Neuropsych: Neuropsych: Anxiety and Dementia Anesthetic Plan: ASA status: 2 Anesthesia: MAC Risk of > 500 ml blood loss (7ml/kg in children): No PFSH Anesthesia PFSH: Medical History Anxiety and depression Has a lot of anxiety as well as depression especially . Has been on and off various medications in the past and always stops them as she feels better. Does not have a therapist. Has not followed up with behavioral health care despite recommendation -Currently using medical marijuana for this Asthma Reports being diagnosed with asthma as a child. Has been using albuterol inhaler as needed during the . 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 Reports her partner has been tested negative. History of molar (01/21/16) 01/21/2016: Identified on path from D&C. Followed with serial hCGs. Had repeat D&C in 2017 in [place] due to leftover molar tissue . No pertinent past medical history Denies diabetes, hypertension, seizures, DVT/PE. PMD: none Surgical History History of appendectomy (~12/2009) Open procedure via right lower quadrant incision History of breast augmentation (~03/2016) Bilateral silicone gel implants, placed below muscle History of dilation and curettage (01/21/16) Diagnoses: Missed at [address] Holman at [facility] [place]. Pathology showed partial molar . History of hysteroscopy (~2016) With D&C. Performed in [place] by Dr. Contreras. States was due to leftover molar tissue . History of oral surgery (~2010) [place] teeth removed Hx of tonsillectomy (~2004) With adenoidectomy Family History Mother Stroke Grandfather Diabetes Maternal Hypertension Maternal Family/Other Diabetes Paternal aunt Grandmother Hypertension Maternal Social History Smoking and tobacco status: former smoker Alcohol intake: former Additional social history: - Data Anesthesia Cardiac Studies: No Data to Display
[2021-05-07 10:32] VITALS: BP 122/78; PULSE 95; RESP 18; TEMP 36.9; O2SAT 97
[2021-05-07] MEDS: sodium chloride 0.9% 1,000 ML 30 ML IV (10:47)
[2021-05-07] MEDS: ondansetron 2 mg/ML SDV 2 mL 4 MG IVP (10:47)
--- NOTE | 2021-05-07 11:05 | W.PM.OPSFHP ---
Same Day Surgery H&P Indication for Procedure/HPI DATE OF PROCEDURE: May 07, 2021 CHIEF COMPLAINT/INDICATIONFOR SURGICAL PROCEDURE: Early satiety, weight loss, hematochezia. PREOP DIAGNOSIS: N/V WL PLANNED PROCEDRUE: Operation Date: 05/07/21 11:30 Proposed Procedures p EGD/colon [id number] R63.4(Not Applicable) - Yazan Madden MD s Colonoscopy(Not Applicable) - Yazan Madden MD Medications/Allergies* Home Medications Medication Instructions Recorded Confirmed Type prenat.vits,gualberto,[id number]-[id number] 1 tab PO ONCE 09/12/19 05/04/21 History albuterol sulfate 90 mcg/actuation 2 puff INHALATION Q6H PRN 03/22/21 05/04/21 History aerosol inhaler Hair, Skin and Nails Advanced 1 tab PO DAILY 05/04/21 05/04/21 History ondansetron HCl 4 mg PO DAILY PRN 05/07/21 05/07/21 History Allergies/Adverse Reactions Allergy/AdvReac Type Severity Reaction Status Date / Time doxycycline Allergy Severe anaphlactic Verified 05/03/21 14:52 Sulfa (Sulfonamide Allergy Severe anaphlactic Verified 05/03/21 14:52 Antibiotics) hydrocodone AdvReac Itching, Verified 05/03/21 14:52 rash Current Medications: Generic Name Dose Route Start Last Admin Trade Name Freq PRN Reason Stop Dose Admin Sodium Chloride 1,000 mls @ 30 mls/hr 05/07/21 10:15 05/07/21 10:47 Sodium Chloride 0.9% IV 05/08/21 10:14 30 mls/hr .Q24H NATASHA Administration Ondansetron HCl 4 mg 05/07/21 10:44 05/07/21 10:47 Ondansetron 2 Mg/Ml Sdv 2 Ml IVP 05/07/21 10:45 4 mg ONCE ONE Administration Pertinent History/Comorbid Conditions* Medical History (Updated 05/03/21 @ 15:17 by Yazan Madden MD) Anxiety and depression Has a lot of anxiety as well as depression especially . Has been on and off various medications in the past and always stops them as she feels better. Does not have a therapist. Has not followed up with behavioral health care despite recommendation -Currently using medical marijuana for this Asthma Reports being diagnosed with asthma as a child. Has been using albuterol inhaler as needed during the . 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 Reports her partner has been tested negative. History of molar (01/21/16) 01/21/2016: Identified on path from D&C. Followed with serial hCGs. Had repeat D&C in 2017 in [place] due to leftover molar tissue . No pertinent past medical history Denies diabetes, hypertension, seizures, DVT/PE. PMD: none Surgical History (Updated 12/02/19 @ 09:51 by Emily Okeefe MD) History of appendectomy (~12/2009) Open procedure via right lower quadrant incision History of breast augmentation (~03/2016) Bilateral silicone gel implants, placed below muscle History of dilation and curettage (01/21/16) Diagnoses: Missed at [address] Holman at [facility] [place]. Pathology showed partial molar . History of hysteroscopy (~2016) With D&C. Performed in [place] by Dr. Contreras. States was due to leftover molar tissue . History of oral surgery (~2010) [place] teeth removed Hx of tonsillectomy (~2004) With adenoidectomy Family History (Updated 09/17/19 @ 14:08 by Mary Dumont LPN) Diabetes Grandfather Maternal Family/Other Paternal aunt Hypertension Grandfather Maternal Grandmother Maternal Stroke Mother Social History Smoking and tobacco status: former smoker Alcohol intake: former Additional social history: - Pertinent Exam Findings alert, oriented x 3, clear to auscultation bilaterally, regular rate & rhythm, operative site marked and procedure specific exam findings Recommendations Surgery/Procedure today Coding Level of Care Code Acute Military Aircraft Designer for Avrilg Leigha
[2021-05-07 11:31] VITALS: BP 98/56; PULSE 86; RESP 18; TEMP 36.4; O2SAT 96
--- NOTE | 2021-05-07 11:34 | ANE.PACU2 ---
Inpatient post-anesthesia follow up: Airway intact: Yes Vital signs: Temperature 98.5 F Pulse Rate 95 Respiratory Rate 18 Blood Pressure 122/78 Pulse Oximetry 97 Oxygen Delivery Me thod Room Air Oxygen Flow Rate Fraction of Inspir ed Oxygen Hydration adequate: Yes Nausea and vomiting: No Pain level: 1 Mental status: Baseline
[2021-05-07 11:41] VITALS: BP 99/59; PULSE 72; RESP 18; O2SAT 100
[2021-05-08 12:09] LABS: H. Pylori / CLO Test Negative
== END 2021-05-07 12:52 | disposition home or self-care (01) ==
PROVIDERS: PCP Nurse Practitioner Family; Visit Provider Internal Medicine
PROC: 0DJ08ZZ Inspection of Upper Intestinal Tract, Via Natural or Artificial Opening Endoscopic (ICD-10-PCS; CPT 43235; principal; 2021-05-07 11:30)
PROC: 0DJD8ZZ Inspection of Lower Intestinal Tract, Via Natural or Artificial Opening Endoscopic (ICD-10-PCS; CPT 45378; 2021-05-07 11:30)
DX: K90.9 Intestinal malabsorption, unspecified (principal); R68.81 Early satiety; R63.4 Abnormal weight loss; Z68.1 Body mass index [BMI] 19.9 or less, adult; F41.9 Anxiety disorder, unspecified; F32.9 Major depressive disorder, single episode, unspecified; Z87.891 Personal history of nicotine dependence
CPT/HCPCS: 43239; 45378; 81025; 87077; 88305; 96361; 96374; J2405; J2704; J7030

== ENCOUNTER 2021-05-12 07:38 | Outpatient (CLI) | payer MEDICAID, SELFPAY ==
--- NOTE | 2021-05-12 07:47 | US_ITS ---
WS: [id number] RIGHT UPPER QUADRANT ULTRASOUND HISTORY: POST PRANDIAL ABD PAIN COMPARISON: None available. Liver: 15.4 cm in length. Normal size liver. No bile duct dilatation or mass. Gallbladder: Normally distended gallbladder with no stones or wall thickening. CBD: 0.2 cm Pancreas: Normal size and echogenicity. Right kidney: 9.4 cm in length. Normal size and echogenicity. No hydronephrosis or mass. Aorta and IVC: Unremarkable abdominal aorta and IVC. No ascites. US/US gall bladder [id number] IMPRESSION: Normal RIGHT upper quadrant ultrasound.
== END 2021-05-12 07:39 | disposition home or self-care (01) ==
LOC: RAD 07:41
PROVIDERS: PCP Nurse Practitioner Family; Visit Provider Internal Medicine
DX: R10.9 Unspecified abdominal pain (principal)
CPT/HCPCS: 76705

== ENCOUNTER 2021-06-26 16:38 | Emergency (ER) | payer MEDICAID, SELFPAY ==
[2021-06-26 17:25] VITALS: BP 116/84; PULSE 76; RESP 18; TEMP 36.1; O2SAT 100; BMI 18.3
--- NOTE | 2021-06-26 17:39 | USR_ITS ---
PROCEDURE INFORMATION: Exam: US Abdomen, Limited; Right Upper Quadrant Exam date and time: 06/26/2021 5:39 PM Age: 26 years old Clinical indication: Abdominal pain; Acute; Additional info: Ruq pain TECHNIQUE: Imaging protocol: US abdomen. Real time ultrasound with image documentation. Limited exam focused on the right upper quadrant. COMPARISON: US gall bladder [id number] 05/12/2021 8:05 AM FINDINGS: Liver: The liver measures up to 13.7 cm which is normal. No mass or cyst. Gallbladder: The gallbladder is anechoic and free of stones or sludge. There is minimal nonspecific gallbladder wall thickening measuring 2-3 mm. No surrounding edema. Common bile duct: The common bile duct measures 3 mm which is normal. Pancreas: Visualized pancreas is unremarkable. Right kidney: The right kidney measures up to 8.2 cm and is normal. Portal venous: The main portal and hepatic veins are patent. Intraperitoneal space: No right upper quadrant ascites. US/US abdomen limited [id number] IMPRESSION: No significant findings Radiation Dose CTDIVOL = (mGy): DLP = (mGy-cm)
--- NOTE | 2021-06-26 17:46 | W.ED.ABDPA2 ---
HPI - Abdominal Pain General: Chief Complaint: Abdominal Pain Stated Complaint: Abdominal Pain, Nausea Time Seen by Provider: 06/26/21 17:37 History of Present Illness: HPI narrative: 26-year-old female presents due to right upper quadrant abdominal pain. States it has been worsening for the past 6 days. Reports achy pain. Also reports nonbloody diarrhea. Reports nausea but no vomiting. Denies any chest pain or shortness of breath. States she has had similar episodes in the past and previous had unremarkable ultrasound and GI scope. She was started on Protonix but states this is not helping. Denies any dysuria or pelvic discharge. Denies any other focal abdominal pain back pain or flank pain. Denies fevers or chills. Denies any recent travel or antibiotic use. Related Data: Date of Last Menstrual Period: 06/25/21 Review of Systems Narrative: - CONSTITUTIONAL: Denies weight loss, fever and chills. - HEENT: Denies changes in vision and hearing. - RESPIRATORY: Denies SOB and cough. - CV: Denies palpitations and CP. - GI: As above - : Denies dysuria and urinary frequency. - MSK: Denies myalgia and joint pain. - SKIN: Denies rash and pruritus. - NEUROLOGICAL: Denies headache, weakness, numbness and syncope. - PSYCHIATRIC: Denies suicidal ideation PFSH ED PFSH: Medical History Anxiety and depression Has a lot of anxiety as well as depression especially . Has been on and off various medications in the past and always stops them as she feels better. Does not have a therapist. Has not followed up with behavioral health care despite recommendation -Currently using medical marijuana for this Asthma Reports being diagnosed with asthma as a child. Has been using albuterol inhaler as needed during the . 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 Reports her partner has been tested negative. History of molar (01/21/16) 01/21/2016: Identified on path from D&C. Followed with serial hCGs. Had repeat D&C in 2017 in [place] due to leftover molar tissue . No pertinent past medical history Denies diabetes, hypertension, seizures, DVT/PE. PMD: none Surgical History History of appendectomy (~12/2009) Open procedure via right lower quadrant incision History of breast augmentation (~03/2016) Bilateral silicone gel implants, placed below muscle History of colonoscopy 04/2021 History of dilation and curettage (01/21/16) Diagnoses: Missed at [address] [address] Holman at [facility] [place]. Pathology showed partial molar . History of esophagogastroduodenoscopy (EGD) 04/2021 History of hysteroscopy (~2016) With D&C. Performed in [place] by Dr. Contreras. States was due to leftover molar tissue . History of oral surgery (~2010) [place] teeth removed Hx of tonsillectomy (~2004) With adenoidectomy Family History Mother Stroke Grandfather Diabetes Maternal Hypertension Maternal Family/Other Diabetes Paternal aunt Grandmother Hypertension Maternal Social History Smoking and tobacco status: former smoker Alcohol intake: former Additional social history: - Female Reproductive History: Date of last menstrual period: 06/25/21 Physical Exam Narrative: EXAM NARRATIVE: - GENERAL: Alert and oriented x 3. No acute distress. Well-nourished. - EYES: EOMI. Anicteric. - HENT: Atraumatic, no C-spine tenderness. Moist mucous membranes. No scleral icterus. No cervical lymphadenopathy. - LUNGS: Clear to auscultation bilaterally. No accessory muscle use. Equal lung sounds bilaterally. No respiratory distress. - CARDIOVASCULAR: Regular rate and rhythm. No murmur. No JVD. - ABDOMEN: Soft, non-distended. Negative CVA tenderness bilaterally, no rebound or guarding. No palpable masses. Right upper quadrant tenderness, positive Hernandez sign. - EXTREMITIES: No edema. Non-tender. - SKIN: No rashes or lesions. Warm. - NEUROLOGIC: No meningismus or focal neurological deficits. CN II-XII grossly intact. - PSYCHIATRIC: Cooperative. Appropriate mood and affect. Course Vital Signs: Vital signs: Vital Signs Temperature 97.8 F 06/26/21 18:57 Pulse Rate 79 06/26/21 18:57 Respiratory Rate 17 06/26/21 18:57 Blood Pressure 101/78 06/26/21 18:57 Pulse Oximetry 96 06/26/21 18:57 MDM - Abdominal Pain MDM Narrative: Medical decision making narrative: 26-year-old presents with right upper quadrant pain nausea and diarrhea. History inconsistent with ACS. Patient does have positive Hernandez sign but negative ultrasound. Has had negative ultrasounds in the past and also unremarkable GI scope. Prescription for Bentyl provided. Otherwise lab work unremarkable except for mildly low white count 3.3 but otherwise no sign of focal infection. Instructed to follow-up with surgery and PCP as she may need a HIDA scan. Unable to produce stool sample in the emergency department. At this time I believe patient would be safe for discharge and outpatient follow-up. Return precautions provided. Plan was reviewed with the patient who expressed understanding. Questions answered. Patient will follow up with PCP. Patient discharged in stable condition. Lab Data: Labs: Lab Results 06/26/21 06/26/21 06/26/21 18:04 18:04 18:18 WBC 3.3 10^3/uL L 10^ 3/uL (4.0-10.0) RBC 5.03 10^6/uL 10^6 /uL (4.1-5.3) Hgb 14.4 g/dL g/dL (11.5-15.3) Hct 43.4 % % (37.0-47.0) MCV 86.3 fl fl (81-99) MCH 28.6 pg pg (28.0-34.0) MCHC 33.2 g/dL g/dL (30.0-36.0) RDW 12.0 % L % (12.1-15.1) Plt Count 212 10^3/cmm 10^3 /cmm (130-400) MPV 11.5 fL H fL (7.4-10.4) Neut % (Auto) 33.7 % % Lymph % (Auto) 47.9 % % Stevens % (Auto) 13.6 % % Eos % (Auto) 4.2 % % Baso % (Auto) 0.3 % % Neut # (Auto) 1.11 10^3/uL L 10 ^3/uL (1.8-7.7) Lymph # (Auto) 1.6 10^3/uL 10^3/ uL (0.8-4.8) Stevens # (Auto) 0.5 10^3/uL 10^3/ uL (0.2-0.9) Eos # (Auto) 0.1 10^3/uL 10^3/ uL (0.0-0.8) Baso # (Auto) 0.0 10^3/uL 10^3/ uL (0.0-0.1) Nucleated RBC % (a uto) 0 % % Nucleated RBCs # 0.0 /100WBC /100W BC Sodium Potassium Chloride Carbon Dioxide Anion Gap BUN Creatinine GFR Calculation Glucose Calculated Osmolal ity Calcium Total Bilirubin AST ALT Alkaline Phosphata se Total Protein Albumin Globulin Lipase HCG, Qual Negative (Negative) Urine Color Yellow (Yellow) Urine Appearance Clear (CLEAR) Urine pH 5 (5-7) Ur Specific Gravit y 1.020 (1.005-1.030) Urine Protein Neg (Negative) Urine Glucose (UA) Norm (Normal) Urine Ketones 1+ H (Negative) Urine Blood Neg (Negative) Urine Nitrate Negative (Negative) Urine Bilirubin Neg (Negative) Urine Urobilinogen 1 mg/dL H mg/dL (Negative) Ur Leukocyte Angela ase Negative (Negative) Urine RBC None /hpf /hpf (0-2) Urine WBC None /hpf /hpf (0-5) Ur Squamous Epith Cells 0-4 /hpf H /hpf (0-5) Amorphous Sediment Not Reportable Urine Bacteria Trace /hpf /hpf (NONE) Urine Mucus 2+ /hpf /hpf 06/26/21 18:18 WBC RBC Hgb Hct MCV MCH MCHC RDW Plt Count MPV Neut % (Auto) Lymph % (Auto) Stevens % (Auto) Eos % (Auto) Baso % (Auto) Neut # (Auto) Lymph # (Auto) Stevens # (Auto) Eos # (Auto) Baso # (Auto) Nucleated RBC % (a uto) Nucleated RBCs # Sodium 143 mmol/L mmol/L (136-145) Potassium 3.6 mmol/L mmol/L (3.5-5.1) Chloride 108 mmol/L H mmol /L (98-107) Carbon Dioxide 25 mmol/L mmol/L (22-29) Anion Gap 13.6 (5-19) BUN 8 mg/dL mg/dL (6-20) Creatinine 0.6 mg/dL mg/dL (0.5-0.9) GFR Calculation 119.9 mL/min mL/m in (90-130) Glucose 80 mg/dL mg/dL (65-115) Calculated Osmolal ity 293 mOsm/kg mOsm/ kg (285-295) Calcium 8.8 mg/dL mg/dL (8.5-10.5) Total Bilirubin 0.2 mg/dL mg/dL (0.15-1.2) AST 18 U/L U/L (0-32) ALT 20 U/L U/L (0-33) Alkaline Phosphata se 56 IU/L IU/L (35-105) Total Protein 6.4 g/dL L g/dL (6.6-8.7) Albumin 4.2 g/dL g/dL (3.5-5.2) Globulin 2.2 g/dL g/dL (1.3-4.6) Lipase 26 U/L U/L (13-60) HCG, Qual Urine Color Urine Appearance Urine pH Ur Specific Gravit y Urine Protein Urine Glucose (UA) Urine Ketones Urine Blood Urine Nitrate Urine Bilirubin Urine Urobilinogen Ur Leukocyte Angela ase Urine RBC Urine WBC Ur Squamous Epith Cells Amorphous Sediment Urine Bacteria Urine Mucus Discharge Plan Discharge Prescriptions: No Action albuterol sulfate 90 mcg/actuation HFA aerosol inhaler 2 puff inhalation Q6H PRN (Reason: Shortness Of Breath) RF: 0 prenat.vits,gualberto,[id number] Tablet 1 tab PO ONCE RF: 0 Hair, Skin and Nails Advanced 1 tab PO DAILY RF: 0 pantoprazole 40 mg tablet,delayed release (DR/EC) 40 mg PO DAILY Qty: 90 RF: 8 Coding Level of Care Code ED Information Management Manager for Avrilg Leigha
[2021-06-26 18:14] VITALS: BP 128/86; PULSE 75; RESP 17; RESP 18; TEMP 36.9; O2SAT 98
[2021-06-26] MEDS: sodium chloride 0.9% 1,000 ML 999 ML IV (18:14)
[2021-06-26] MEDS: fentaNYL 50 mcg/mL INJ 2mL IVP (18:14)
[2021-06-26] MEDS: ondansetron 2 mg/ML SDV 2 mL 4 MG IVP (18:14)
[2021-06-26 18:33] LABS: Basophils % 0.3 %; Eosinophils # 0.1 10^3/uL (0.0-0.8); Eosinophils % 4.2 %; Hematocrit 43.4 % (37.0-47.0); Hemoglobin 14.4 g/dL (11.5-15.3); Lymphocytes # 1.6 10^3/uL (0.8-4.8); Lymphocytes % 47.9 %; Mean Corpuscular HGB Conc 33.2 g/dL (30.0-36.0); Mean Corpuscular Hemoglobin 28.6 pg (28.0-34.0); Mean Corpuscular Volume 86.3 fl (81-99); Mean Platelet Volume 11.5 fL (7.4-10.4); Monocytes # 0.5 10^3/uL (0.2-0.9); Monocytes % 13.6 %; Neutrophils # 1.11 10^3/uL (1.8-7.7); Neutrophils % 33.7 %; Nucleated Red Blood Cells % 0 %; Platelet Count 212 10^3/cmm (130-400); Red Blood Count 5.03 10^6/uL (4.1-5.3); White Blood Count 3.3 10^3/uL (4.0-10.0)
[2021-06-26 18:40] LABS: HCG Qualitative Urine. Negative (Negative)
[2021-06-26 18:45] LABS: Bilirubin Urine Neg (Negative); Blood Urine Neg (Negative); Glucose Urine UA Norm (Normal); Ketones Urine 1+ (Negative); Leukocyte Esterase Urine Negative (Negative); Nitrate Urine Negative (Negative); Protein Urine Neg (Negative); Urine Appearance Clear (CLEAR); Urine Color Yellow (Yellow); Urobilinogen Urine 1 mg/dL (Negative); pH Urine 5 (5-7)
[2021-06-26 18:49] LABS: Add Urine Culture? No; Bacteria Urine TRACE /hpf; Mucus Urine 2+ /hpf; Squamous Epithelial Cell Urine 0-4 /hpf (0-5)
[2021-06-26 18:57] VITALS: BP 101/78; PULSE 79; RESP 17; TEMP 36.6; O2SAT 96
[2021-06-26 19:00] LABS: Slide Review Slide Review Perform
[2021-06-26 19:05] LABS: Alanine Aminotransferase 20 U/L (0-33); Albumin Level 4.2 g/dL (3.5-5.2); Alkaline Phosphatase 56 IU/L (35-105); Anion Gap 13.6 (5-19); Aspartate Amino Transferase 18 U/L (0-32); Blood Urea Nitrogen 8 mg/dL (6-20); Calcium 8.8 mg/dL (8.5-10.5); Carbon Dioxide 25 mmol/L (22-29); Chloride 108 mmol/L (98-107); Globulin 2.2 g/dL (1.3-4.6); Glomerular Filtration Rate 119.9 mL/min (90-130); Glucose 80 mg/dL (65-115); Lipase 26 U/L (13-60); Osmolality Calculated 293 mOsm/kg (285-295); Potassium 3.6 mmol/L (3.5-5.1); Sodium 143 mmol/L (136-145); Total Bilirubin 0.2 mg/dL (0.15-1.2); Total Protein 6.4 g/dL (6.6-8.7)
[2021-06-26 21:44] VITALS: BP 110/78; PULSE 74; RESP 18; O2SAT 97
== END 2021-06-26 21:45 | disposition home or self-care (01) ==
PROVIDERS: Emergency Provider Emergency Medicine; PCP Nurse Practitioner Family
DX: R10.11 Right upper quadrant pain (principal); Z87.891 Personal history of nicotine dependence
CPT/HCPCS: 76705; 80053; 81001; 81025; 83690; 85025; 96361; 96374; 96375; 99284; J2405; J3010; J7030

== ENCOUNTER 2021-07-22 09:36 | Outpatient (CLI) | payer MEDICAID, SELFPAY ==
--- NOTE | 2021-07-22 09:41 | NM_ITS ---
WS: [id number] NUCLEAR MEDICINE HIDA SCAN WITH GALLBLADDER EJECTION FRACTION HISTORY: RUQ PAIN COMPARISON: 06/26/2021 ultrasound. TECHNIQUE: The patient was intravenously injected with 7.7 mCi of TC99m Mebrofenin. Immediate imaging over the right upper quadrant was followed by 5 minute image and additional images for a total of 60 minutes. Normal uptake of radiotracer throughout the liver. Activity identified in the gallbladder at 10 minutes and well distended by 60 minutes. Activity in the proximal small bowel was seen by 60 minutes. Good washout of the radiotracer from the liver by 60 minutes. The patient then drank 8 ounces of Ensure Plus. Ejection fraction at 60 minutes was 68%. Normal GB ej ection fraction is 35-75%. Post fatty meal symptoms: None. NM/NM hepatobiliary w phar* [id number] IMPRESSION: 1. Normal HIDA scan. 2. Normal gallbladder ejection fraction.
== END 2021-07-22 09:37 | disposition home or self-care (01) ==
LOC: NM 09:37
PROVIDERS: PCP Nurse Practitioner Family; Visit Provider Surgery
DX: R10.11 Right upper quadrant pain (principal)
CPT/HCPCS: 78227; A9537

== ENCOUNTER → 2021-08-28 14:24 | Outpatient (BNVA) | payer MEDICAID, SELFPAY | PROVIDERS: PCP Nurse Practitioner Family; Visit Provider Nurse Practitioner | DX: R39.9 Unspecified symptoms and signs involving the genitourinary system (principal) | CPT/HCPCS: 81000 ==

== ENCOUNTER → 2021-09-27 10:38 | Outpatient (BNVA) | payer MEDICAID, SELFPAY | PROVIDERS: PCP Nurse Practitioner Family; Visit Provider Obstetrics & Gynecology | DX: N93.9 Abnormal uterine and vaginal bleeding, unspecified (principal) | CPT/HCPCS: 84146; 84443 ==

== ENCOUNTER → 2021-10-26 13:36 | Outpatient (BNVA) | payer MEDICAID, SELFPAY | PROVIDERS: PCP Nurse Practitioner Family; Visit Provider Obstetrics & Gynecology | DX: Z30.9 Encounter for contraceptive management, unspecified (principal); Z32.02 Encounter for pregnancy test, result negative | CPT/HCPCS: 81025 ==

== ENCOUNTER → 2021-12-08 13:48 | Outpatient (BNVA) | payer MEDICAID, SELFPAY | PROVIDERS: PCP Nurse Practitioner Family; Visit Provider Obstetrics & Gynecology | DX: N93.9 Abnormal uterine and vaginal bleeding, unspecified (principal) | CPT/HCPCS: 84702 ==

== ENCOUNTER → 2022-03-16 14:37 | Outpatient (BNVA) | payer MEDICAID, SELFPAY | PROVIDERS: PCP Nurse Practitioner Family; Visit Provider Internal Medicine Cardiovascular Disease | DX: R00.2 Palpitations (principal); I49.1 Atrial premature depolarization; I49.3 Ventricular premature depolarization; R00.0 Tachycardia, unspecified | CPT/HCPCS: 93242 ==

== ENCOUNTER 2022-11-22 15:23 | Emergency (ER) | payer MEDICAID, SELFPAY ==
[2022-11-22 15:28] VITALS: BP 122/87; PULSE 96; RESP 16; TEMP 36.6; O2SAT 99
[2022-11-22 15:39] VITALS: BP 114/82; PULSE 89; RESP 15; O2SAT 99
[2022-11-22 15:50] VITALS: BP 117/83; PULSE 91; RESP 15; O2SAT 98
--- NOTE | 2022-11-22 16:05 | ECG_ITS ---
[facility] Test Date: 2022-11-22 Pat Name: Uriel Mcgarry Department: Room: Gender: Female [employer] Sprayer: : 1995 Requested By: Clifton Leone Order Number: [id number] Shanta MD: FATIMAH SAN Measurements Intervals [place] Rate: 88 P: 58 SC: 157 QRS: 46 QRSD: 94 T: 55 QT: 369 QTc: 448 Interpretive Statements SINUS RHYTHM POSSIBLE LEFT ATRIAL ENLARGEMENT [-0.1mV P-WAVE IN V1/V2] LOW QRS VOLTAGE IN PRECORDIAL LEADS [QRS DEFLECTION < 1.0 mV IN CHEST LEADS] INCOMPLETE RIGHT BUNDLE BRANCH BLOCK [90+ ms QRS DURATION, TERMINAL R IN V1/V2, 40+ ms S IN I/aVL/V4/V5/V6] Compared to ECG 07/14/2018 15:22:35 Low QRS voltage now present Incomplete right bundle-branch block now present T-wave abnormality no longer present Electronically Signed On 11-22-2022 17:33:47 CDT by FATIMAH SAN [id number]
--- NOTE | 2022-11-22 16:05 | XRR_ITS ---
PROCEDURE INFORMATION: Exam: XR Chest Exam date and time: 11/22/2022 4:29 PM Age: 27 years old Clinical indication: Pain; Angina pectoris; Additional info: Chest pain TECHNIQUE: Imaging protocol: Radiologic exam of the chest. Views: 1 view. COMPARISON: CR XR chest 1V portable [id number] 02/25/2021 2:48 PM FINDINGS: Lungs: Unremarkable. No consolidation. Pleural spaces: Unremarkable. No pleural effusion. No pneumothorax. Heart/Mediastinum: Unremarkable. No cardiomegaly. Bones/joints: Unremarkable. XR/XR chest 1V portable [id number] IMPRESSION: No acute findings.
--- NOTE | 2022-11-22 16:06 | ED_ITS ---
HPI - Chest Pain General: Chief Complaint: Chest Pain Stated Complaint: Irregular HR, Chest Pressure Time Seen by Provider: 11/22/22 15:55 History of Present Illness: Patient presents to the ER with complaints of intermittent chest pressure substernally and shortness of breath. She states she also gets nauseous and anxious and diaphoretic during these episodes. These episodes only last about 30 seconds in nature she has had multiple episodes today. Patient normally has a fast heart rate and take metoprolol for that. Patient also has anxiety and is on Celexa. MD complaint: chest pain Onset (ago): hour(s) Timing of current episode: episodic and now resolved Prior episodes: Yes Onset: during rest Pain location: substernal Pain radiation: none Quality: sharp Relieving factors: nothing Exacerbating factors: nothing Associated symptoms: Reports diaphoresis, dyspnea, nausea and palpitations; Deny abdominal pain, fever(s) or vomiting Treatment prior to arrival: none Review of Systems General: Reports: 10 or more systems reviewed and unremarkable except in HPI and below Const: Reports: diaphoresis; Denies: fever(s), chills or body aches Eyes: Denies: change in vision ENMT: Denies: throat pain or odynophagia Card: Reports: chest pain and palpitations Resp: Reports: dyspnea; Denies: productive cough, non-productive cough or wheezing GI: Reports: nausea; Denies: abdominal pain, vomiting or diarrhea : Denies: flank pain, difficulty voiding, dysuria or urinary frequency Musc: Denies: neck pain, back pain or extremity pain Skin/Breast: Denies: rash, pruritus or erythema Neuro: Denies: headache(s), numbness in extremities or weakness in extremities Psych: Denies: anxiety or depression Endo: Denies: polyuria or polydipsia Ish/Lymph: Denies: easy bruising or easy bleeding All/Imm: Denies: urticaria or throat swelling PFSH ED PFSH: Medical History Anxiety and depression Has a lot of anxiety as well as depression especially . Has been on and off various medications in the past and always stops them as she feels better. Does not have a therapist. Has not followed up with behavioral health care despite recommendation -Currently using medical marijuana for this Asthma Reports being diagnosed with asthma as a child. Has been using albuterol inhaler as needed during the . 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 Reports her partner has been tested negative. History of molar (01/21/16) 01/21/2016: Identified on path from D&C. Followed with serial hCGs. Had repeat D&C in 2017 in [place] due to leftover molar tissue . No pertinent past medical history Denies diabetes, hypertension, seizures, DVT/PE. PMD: none Scoliosis Surgical History History of appendectomy (~12/2009) Open procedure via right lower quadrant incision History of breast augmentation (~03/2016) Bilateral silicone gel implants, placed below muscle History of colonoscopy 04/2021 History of dilation and curettage (01/21/16) Diagnoses: Missed at [address] Holman at [facility] [place]. Pathology showed partial molar . History of esophagogastroduodenoscopy (EGD) 04/2021 History of hysteroscopy (~2016) With D&C. Performed in [place] by Dr. Contreras. States was due to leftover molar tissue . History of oral surgery (~2010) [place] teeth removed Hx of tonsillectomy (~2004) With adenoidectomy S/P hernia surgery Family History Mother Stroke Grandfather Diabetes Maternal Hypertension Maternal Family/Other Diabetes Paternal aunt Grandmother Hypertension Maternal Social History Smoking and tobacco status: current every day smoker (Vapes) e-cigarettes E- Cigarette Details: vaporizer device Physical Exam Const: COMMON NORMALS: no acute distress, average body habitus, patient oriented x3, no limitations, healthy appearing, alert and well nourished HENMT: COMMON NORMALS: normocephalic, atraumatic and hearing grossly normal bilaterally HEAD & SCALP: normocephalic and atraumatic Eye: COMMON NORMALS: Equal, round and reactive pupils present, EOMs intact bilaterally and conjunctivae normal CONJUNCTIVA: Yes conjunctivae normal PUPIL: Yes Equal, round and reactive pupils present Neck/C-Spine: COMMON NORMALS: full ROM, no lymphadenopathy, supple, no JVD and Thyroid normal THYROID: Thyroid normal Lymph: LYMPHATIC: no lymphadenopathy noted Chest: COMMONS NORMALS: normal inspection of the chest CHEST: Yes localized rib tenderness with anteroposterior compression (Tenderness to palpation over left chest wall.) Resp: COMMON NORMALS: normal respiratory effort, No retractions, No use of accessory muscles and clear to auscultation bilaterally AUSCULTATION: clear to auscultation bilaterally Cardio: COMMON NORMALS: no JVD, regular rate, regular rhythm, S1 normal heart sound present and S2 normal heart sound present RATE: regular rate RHYTHM: regular rhythm HEART SOUNDS: S1 normal heart sound present and S2 normal heart sound present GI: COMMON NORMALS: Normal to inspection, nondistended, normoactive bowel sounds present, Soft to palpation, non-tender, No hepatosplenomegaly present and no masses PALPATION: Yes Soft to palpation and Yes No hepatosplenomegaly present : COMMON NORMALS: Yes no CVA tenderness BLADDER/KIDNEY EXAM: Yes no CVA tenderness Back/Pelvis: COMMON NORMALS: no CVA tenderness Neuro: COMMON NORMALS: patient oriented x3, CN's II-XII intact bilaterally, moves all extremities, no focal motor deficits and no sensory deficits noted SENSORIUM/ORIENTATION: Yes alert Psych: COMMON NORMALS: mental status grossly normal, Normal thought process present, cooperative, normal affect and speech normal SPEECH: Yes normal speech THOUGHT PROCESS: Normal thought process present Course Vital Signs: Vital signs: Vital Signs Temperature 97.8 F 11/22/22 15:28 Pulse Rate 85 11/22/22 17:54 Respiratory Rate 20 H 11/22/22 17:00 Blood Pressure 100/73 11/22/22 17:54 Pulse Oximetry 99 11/22/22 17:54 Oxygen Delivery Me thod 11/22/22 17:54 MDM - Chest Pain Medical Decision Making Patient presents to the ER with intermittent chest pressure and shortness of breath starting today. Patient has had intermittent nausea as well. Patient normally has a fast heart rate which she takes metoprolol for. Patient has had multiple episodes today these normally last only for about 30 seconds. There is nothing that can make these episodes happen nor make them go away. Patient does have anxiety which she does take Celexa for. Upon further history from patient and physical exam as well as review of labs that include CBC CMP serial troponins and EKGs and chest x-ray and urine analysis all of which were benign. These results were discussed with the patient. Patient is agreeable to discharge home and follow-up with primary care physician for further evaluation and management. Patient knows to return to the ER if symptoms worsen or change as her condition may change. Differential Diagnosis Unlikely acute massive pulmonary embolism, acute respiratory failure, acute myocardial infarction, cardiac arrest or sudden cardiac Lab Data 11/22/22 16:20 11/22/22 16:20 Radiology Impressions Chest X-Ray 11/22/22 16:05 IMPRESSION: No acute findings. Laboratory Results WBC 5.7 10^3/uL (4.0-10.0) 11/22/22 16:20 RBC 5.19 10^6/uL (4.1-5.3) 11/22/22 16:20 Hgb 15.3 g/dL (11.5-15.3) 11/22/22 16:20 Hct 45.7 % (37.0-47.0) 11/22/22 16:20 MCV 88.1 fl (81-99) 11/22/22 16:20 MCH 29.5 pg (28.0-34.0) 11/22/22 16:20 MCHC 33.5 g/dL (30.0-36.0) 11/22/22 16:20 RDW 12.2 % (12.1-15.1) 11/22/22 16:20 Plt Count 212 10^3/cmm (130-400) 11/22/22 16:20 MPV 11.3 fL (7.4-10.4) H 11/22/22 16:20 Neut % (Auto) 68.6 % 11/22/22 16:20 Lymph % (Auto) 21.1 % 11/22/22 16:20 Brooke % (Auto) 7.4 % 11/22/22 16:20 Eos % (Auto) 2.3 % 11/22/22 16:20 Baso % (Auto) 0.4 % 11/22/22 16:20 Neut # (Auto) 3.90 10^3/uL (1.8-7.7) 11/22/22 16:20 Lymph # (Auto) 1.2 10^3/uL (0.8-4.8) 11/22/22 16:20 Brooke # (Auto) 0.4 10^3/uL (0.2-0.9) 11/22/22 16:20 Eos # (Auto) 0.1 10^3/uL (0.0-0.8) 11/22/22 16:20 Baso # (Auto) 0.0 10^3/uL (0.0-0.1) 11/22/22 16:20 Nucleated RBC % (auto) 0 % 11/22/22 16:20 Nucleated RBCs # 0.0 /100WBC 11/22/22 16:20 Sodium 142 mmol/L (136-145) 11/22/22 16:20 Potassium 4.5 mmol/L (3.5-5.1) 11/22/22 16:20 Chloride 107 mmol/L (98-107) 11/22/22 16:20 Carbon Dioxide 26 mmol/L (22-29) 11/22/22 16:20 Anion Gap 13.5 (5-19) 11/22/22 16:20 BUN 12 mg/dL (6-20) 11/22/22 16:20 Creatinine 0.8 mg/dL (0.5-0.9) 11/22/22 16:20 GFR Calculation 85.4 mL/min (90-130) L 11/22/22 16:20 Glucose 77 mg/dL (65-115) 11/22/22 16:20 Calculated Osmolality 293 mOsm/kg (285-295) 11/22/22 16:20 Calcium 8.8 mg/dL (8.5-10.5) 11/22/22 16:20 Total Bilirubin 0.2 mg/dL (0.15-1.2) 11/22/22 16:20 AST 24 U/L (0-32) 11/22/22 16:20 ALT 26 U/L (0-33) 11/22/22 16:20 Alkaline Phosphatase 39 U/L (35-105) 11/22/22 16:20 Troponin T Baseline 6 ng/L (0-10) 11/22/22 16:20 Troponin T 120 Minute 6.00 ng/L (0-10) 11/22/22 18:27 Delta Troponin T 0 ABS# (0-10) 11/22/22 18:27 Total Protein 5.9 g/dL (6.6-8.7) L 11/22/22 16:20 Albumin 4.0 g/dL (3.5-5.2) 11/22/22 16:20 Globulin 1.9 g/dL (1.3-4.6) 11/22/22 16:20 Urine Color Yellow (Yellow) 11/22/22 16:19 Urine Appearance Clear (CLEAR) 11/22/22 16:19 Urine pH 6 (5-7) 11/22/22 16:19 Ur Specific [place] 1.020 (1.005-1.030) 11/22/22 16:19 Urine Protein Neg (Negative) 11/22/22 16:19 Urine Glucose (UA) Norm (Normal) 11/22/22 16:19 Urine Ketones Negative (Negative) 11/22/22 16:19 Urine Blood Neg (Negative) 11/22/22 16:19 Urine Nitrate Negative (Negative) 11/22/22 16:19 Urine Bilirubin Neg (Negative) 11/22/22 16:19 Urine Urobilinogen 1 mg/dL (Negative) H 11/22/22 16:19 Ur Leukocyte Esterase Negative (Negative) 11/22/22 16:19 Urine Opiates Screen Negative ng/mL (Negative) 11/22/22 16:19 Ur Barbiturates Screen Negative ng/mL (Negative) 11/22/22 16:19 Ur Phencyclidine Scrn Negative ng/mL (Negative) 11/22/22 16:19 Ur Amphetamines Screen Negative ng/mL (Negative) 11/22/22 16:19 U Benzodiazepines Scrn Negative ng/mL (Negative) 11/22/22 16:19 Urine Cocaine Screen Negative ng/mL (Negative) 11/22/22 16:19 U Marijuana (THC) Screen Negative ng/mL (Negative) 11/22/22 16:19 EKG Data EKG 1: I personally reviewed and interpreted this EKG as follows: EKG interpretation date: 11/22/22 EKG interpretation time: 16:38 Prior EKG tracings: not available for review Interpretation: EKG showed normal sinus rhythm with a ventricular rate of 88 bpm, incomplete right bundle branch block, TX interval of 157, QRS duration of 94, QTc of 415, no ST or T wave abnormalities. EKG 2: EKG interpretation date: 11/22/22 EKG interpretation time: 17:54 Prior EKG tracings: available for review Interpretation: . EKG showed normal sinus rhythm with a rate of 92 bpm TX interval of 152, QRS duration of 90, QTc of 410, no ST-T wave changes Discharge Plan Discharge Patient Disposition: Home Clinical Impression: Atypical chest pain Condition: Stable Prescriptions: No Action L norgest/e.estradiol-e.estrad [Ashlyna] 0.15 mg-30 mcg (84)/10 mcg (7) tablets,dose pack,3 month 1 tab PO DAILY metoprolol tartrate 25 mg tablet 12.5 mg PO TID Qty: 45 6RF venlafaxine 37.5 mg tablet 37.5 mg PO DAILY Qty: 30 3RF citalopram 10 mg tablet 20 mg PO DAILY ibuprofen 200 mg Tablet 800 mg PO Q6H PRN (Reason: Pain) Discharge Orders: Discharge ED (Routine); Ordered 11/22/22 Ordered By: Clifton Leone Referrals: Chanell Urban FNP [Primary Care Provider] - 1 week Discharge Activity: Resume usual activity Patient Instructions: Chest Pain - Noncardiac Coding Level of Care Code ED [employer] Maker for Chg Leigha
[2022-11-22 16:26] LABS: Add Urine Microscopic? NO; Charge for UA Resulting for Rev
[2022-11-22 16:42] LABS: Basophils % 0.4 %; Eosinophils # 0.1 10^3/uL (0.0-0.8); Eosinophils % 2.3 %; Hematocrit 45.7 % (37.0-47.0); Hemoglobin 15.3 g/dL (11.5-15.3); Lymphocytes # 1.2 10^3/uL (0.8-4.8); Lymphocytes % 21.1 %; Mean Corpuscular HGB Conc 33.5 g/dL (30.0-36.0); Mean Corpuscular Hemoglobin 29.5 pg (28.0-34.0); Mean Corpuscular Volume 88.1 fl (81-99); Mean Platelet Volume 11.3 fL (7.4-10.4); Monocytes # 0.4 10^3/uL (0.2-0.9); Monocytes % 7.4 %; Neutrophils % 68.6 %; Nucleated Red Blood Cells % 0 %; Platelet Count 212 10^3/cmm (130-400); Red Blood Count 5.19 10^6/uL (4.1-5.3); Red Cell Distribution Width 12.2 % (12.1-15.1); White Blood Count 5.7 10^3/uL (4.0-10.0)
[2022-11-22 16:51] LABS: Bilirubin Urine Neg (Negative); Blood Urine Neg (Negative); Glucose Urine UA Norm (Normal); Ketones Urine Negative (Negative); Leukocyte Esterase Urine Negative (Negative); Nitrate Urine Negative (Negative); Protein Urine Neg (Negative); Urine Appearance Clear (CLEAR); Urine Color Yellow (Yellow); Urobilinogen Urine 1 mg/dL (Negative); pH Urine 6 (5-7)
[2022-11-22 17:00] VITALS: BP 113/77; PULSE 84; RESP 20; O2SAT 94
[2022-11-22 17:04] LABS: Alanine Aminotransferase 26 U/L (0-33); Alkaline Phosphatase 39 U/L (35-105); Anion Gap 13.5 (5-19); Aspartate Amino Transferase 24 U/L (0-32); Blood Urea Nitrogen 12 mg/dL (6-20); Calcium 8.8 mg/dL (8.5-10.5); Carbon Dioxide 26 mmol/L (22-29); Chloride 107 mmol/L (98-107); Globulin 1.9 g/dL (1.3-4.6); Glomerular Filtration Rate 85.4 mL/min (90-130); Glucose 77 mg/dL (65-115); Osmolality Calculated 293 mOsm/kg (285-295); Potassium 4.5 mmol/L (3.5-5.1); Sodium 142 mmol/L (136-145); Total Bilirubin 0.2 mg/dL (0.15-1.2); Total Protein 5.9 g/dL (6.6-8.7)
[2022-11-22 17:09] LABS: Amphetamines Screen Urine Negative (Negative); Barbiturates Screen Urine Negative (Negative); Benzodiazepines Screen Urine Negative (Negative); Cocaine Screen Urine Negative (Negative); Opiate Screen Urine Negative (Negative); PCP Screen Urine Negative (Negative); THC Screen Urine Negative (Negative)
[2022-11-22 17:09] LABS: Troponin(5th) Baseline 6 ng/L (0-10)
[2022-11-22 17:54] VITALS: BP 100/73; PULSE 85; O2SAT 99
--- NOTE | 2022-11-22 18:05 | ECG_ITS ---
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1995 Requested By: Clifton Leone Order Number: [id number] Shanta MD: FATIMAH SAN Measurements Intervals [place] Rate: 92 P: 64 [place]: 152 QRS: 28 QRSD: 90 T: 56 QT: 360 QTc: 447 Interpretive Statements SINUS RHYTHM POSSIBLE LEFT ATRIAL ENLARGEMENT [-0.1mV P-WAVE IN V1/V2] POSSIBLE RIGHT VENTRICULAR CONDUCTION DELAY [RSR (QR) IN V1/V2] Compared to ECG 11/22/2022 16:38:42 Incomplete right bundle-branch block no longer present Electronically Signed On 11-23-2022 20:33:40 CDT by FATIMAH SAN [id number]
[2022-11-22 19:12] LABS: Troponin 5 2HR Delta 0 ABS# (0-10)
[2022-11-22] MEDS: ibuprofen 800 mg tablet PO (20:04)
== END 2022-11-22 20:08 | disposition home or self-care (01) ==
PROVIDERS: Emergency Provider Emergency Medicine; PCP Nurse Practitioner Family
DX: R07.89 Other chest pain (principal); F17.290 Nicotine dependence, other tobacco product, uncomplicated
CPT/HCPCS: 36415; 71045; 80053; 80306; 81003; 84484; 85025; 93005; 99285

== ENCOUNTER 2022-12-08 09:05 | Outpatient (CLI) | payer MEDICAID, SELFPAY ==
--- NOTE | 2022-12-08 09:30 | MR_ITS ---
WS: [id number] MRA ANGIOGRAPHY [place] HISTORY: G45.9 - Transient cerebral ischemic attack, unspecified COMPARISON: None available. TECHNIQUE: 3-D MR angiography is performed of the [place]. All images are reviewed including source images. Distal vertebral and basilar arteries are intact with no significant stenosis or plaque. Posterior ce rebral arteries are normal course and caliber. Posterior communicating arteries are both patent. Intracranial portion of the internal carotid arteries are normal course and caliber. No significant a therosclerosis, stenosis or aneurysm identified. Middle and anterior cerebral arteries are both paten t with no significant disease. Anterior communicating artery is also normal. MR/MR angio head wo con [id number] IMPRESSION: Normal MRA [place].
--- NOTE | 2022-12-08 11:00 | MR_ITS ---
WS: [id number] MRI BRAIN WITHOUT CONTRAST HISTORY: G43.711 - Chronic migraine without aura, intractable COMPARISON: CT head 02/18/2012 TECHNIQUE: Diffusion imaging, multiplanar T1, T2 and FLAIR imaging obtained. No evidence for acute infarct or hemorrhage. Neff-white matter differentiation is normal. No frontal lobe white matter lesions that can be seen with migraine headaches are identified. No remote or acute infarcts are volume loss. Ventricles and extra-axial spaces are normal. No inferior displacement of cerebellar tonsils. The sella turcica and pituitary gland are unremarkabl e. Dural venous sinuses and [place] demonstrate no abnormality on this unenhanced studies. Paranasal sinuses: Clear. Mastoid air cells: Normal. Calvarium and scalp: Intact. MR/MR head wo con* [id number] IMPRESSION: 1. Unremarkable noncontrast MRI brain. 2. No signal abnormalities or mass effect. No prior infarct.
--- NOTE | 2022-12-08 11:45 | MR_ITS ---
WS: [id number] MRA CAROTID ARTERIES HISTORY: G45.9 - Transient cerebral ischemic attack, unspecified COMPARISON: None available. TECHNIQUE: MRA is performed with intravenous gadolinium. MIP and source images are reviewed. Right: Normal size and caliber cervical carotid artery with extension to the skull base. No dissectio n or aneurysm or dilatation. No stenosis. No dissection. Left: Normal size and caliber cervical carotid artery with extension to the skull base. No dissection or aneurysm or dilatation. No stenosis. No dissection. Subclavian Arteries: Normal. No stenosis. Vertebral Arteries: Normal caliber. Codominant. No stenosis. MR/MR angio neck wo con [id number] IMPRESSION: Normal MRA carotid arteries.
== END 2022-12-08 09:06 | disposition home or self-care (01) ==
LOC: RAD 09:08
PROVIDERS: PCP Nurse Practitioner Family; Visit Provider Specialist
DX: G45.9 Transient cerebral ischemic attack, unspecified (principal); G43.711 Chronic migraine without aura, intractable, with status migrainosus
CPT/HCPCS: 70544; 70547; 70551

== ENCOUNTER 2022-12-14 12:03 | Outpatient (CLI) | payer MEDICAID, SELFPAY ==
--- NOTE | 2022-12-14 12:19 | USCV_ITS ---
Uriel Mcgarry Age: 27 Gender: F : 1995 Exam Date: 12/14/2022 12:28 Ordering Phys: Chanell Urban BUILDING ADMIN Technologist: Exam [place] [facility] [place]ication: tia BP: 130 / 80 HR: 71 Rhythm: Sinus Technical Quality: Adequate MEASUREMENTS (Male / Female) Normal Values 2D ECHO LV Diastolic Diameter PLAX 3.8 cm 4.2 - 5.9 / 3.9 - 5.3 cm LV Systolic Diameter PLAX 2.4 cm IVS Diastolic Thickness 0.8 cm 0.6 - 1.0 / 0.6 - 0.9 cm IVS Systolic Thickness 1.3 cm LVPW Diastolic Thickness 0.9 cm 0.6 - 1.0 / 0.6 - 0.9 cm LVPW Systolic Thickness 1.5 cm LVOT Diameter 2.0 cm LV Ejection Fraction 2D Teich 69.0 % LV Ejection Fraction MOD 2C 70.4 % LV Ejection Fraction 2C AL 70.8 % LA Diameter 2.7 cm Aorta at Sinotubular Diameter 2.2 cm IVC Diameter 1.3 cm M-MODE Aortic Annulus Diameter 3.1 cm LA Ao Ratio MM 1.0 MV E Point Septal Separation 0.5 cm DOPPLER AV Peak Velocity 95.0 cm/s LVOT Peak Velocity 94.0 cm/s AV Area Cont Eq vti 3.1 cm squared AV Area Cont Eq pk 3.1 cm squared MV Area PHT 5.0 cm squared Mitral E to A Ratio 1.3 MV E' Velocity 54.0 cm/s Mitral E to MV E' Ratio 7.7 Mitral E to LV E' Lateral Ratio 6.5 Mitral E to LV E' Septal Ratio 9.5 TR Peak Velocity 173.3 cm/s TR Peak Gradient 12.0 mmHg TV Peak E Velocity 94.0 cm/s Right Atrial Pressure 3.0 mmHg Pulmonary Artery Systolic Pressu 15.0 mmHg RV Acceleration Time 0.1 s FINDINGS Left Ventricle Left ventricle is normal size. LV systolic function is normal with EF of 55 to 60%. No regional wall motion abnormalities are seen. LV thrombus can not be ruled out. Right Ventricle Normal in size and function Right Atrium Normal in size Left Atrium Normal in size Mitral Valve Structurally normal mitral valve. Aortic Valve Structurally normal aortic valve. No significant stenosis or regurgitation. Tricuspid Valve Mild tricuspid regurgitation. Pulmonary artery systolic pressure is normal. Pulmonic Valve Not well-visualized. Pericardium Normal Aorta Normal in size IVC Appears to be normal CONCLUSIONS LV systolic function is normal with EF of 55 to 60%. No significant valvular heart disease. Mild tricuspid regurgitation LV thrombus can not be ruled out as LV apex is not well visualized. Recommend limited echocardiogram with contrast. No comparison studies are available Paulo Vazquez MD (Electronically Signed) Final Date: 27 December 2022 16:43 S
== END 2022-12-14 12:04 | disposition home or self-care (01) ==
LOC: RAD 12:09
PROVIDERS: PCP Nurse Practitioner Family; Visit Provider Internal Medicine Cardiovascular Disease
DX: R06.00 Dyspnea, unspecified (principal)
CPT/HCPCS: 93306

== ENCOUNTER 2023-01-18 13:56 | Outpatient (CLI) | payer MEDICAID, SELFPAY ==
--- NOTE | 2023-01-18 14:06 | USCV_ITS ---
Uriel Mcgarry Age: 27 Gender: F : 1995 Exam Date: 01/18/2023 14:40 Ordering Phys: Chanell Urban SUPERVISOR MATRIX SUPERVISOR MATRIX Technologist: VANDANA [place] [facility] [place]ication: RLE PAIN HISTORY: Lower extremity pain. PROCEDURES: Venous duplex imaging was performed in only the right lower extremity. The following venous structures were evaluated: common femoral vein, profunda vein, proximal portion of the greater saphenous vein, superficial femoral vein, and the popliteal vein. In addition, the posterior tibial and peroneal trunk were evaluated. Serial compression, augmentation maneuvers, and spectral Doppler flow evaluation were performed. FINDINGS: No evidence of DVT seen in any vessel visualized at this time. CONCLUSIONS No evidence of right lower extremity DVT. Edgard Jose MD (Electronically Signed) Final Date: 18 Jan 2023 16:26 S
== END 2023-01-18 13:57 | disposition home or self-care (01) ==
PROVIDERS: PCP Nurse Practitioner Family; Visit Provider Nurse Practitioner Family
DX: M79.661 Pain in right lower leg (principal)
CPT/HCPCS: 93971

== ENCOUNTER 2023-10-11 07:37 | Oncology outpatient (recurring) (ONCR) | payer MEDICAID, SELFPAY ==
[2023-10-11 15:46] VITALS: BP 102/70; PULSE 92; RESP 17; TEMP 36.2; O2SAT 99
[2023-10-11 15:51] VITALS: BP 102/70; PULSE 92; RESP 17; TEMP 36.2; O2SAT 99
== END 2023-10-11 23:59 | disposition home or self-care (01) ==
PROVIDERS: PCP Nurse Practitioner Family; Visit Provider Family Medicine
DX: O26.899 Other specified pregnancy related conditions, unspecified trimester (principal); Z67.91 Unspecified blood type, Rh negative; Z53.9 Procedure and treatment not carried out, unspecified reason; Z3A.00 Weeks of gestation of pregnancy not specified; H53.9 Unspecified visual disturbance
CPT/HCPCS: 36415; 36430; 59025; 86850; 86900; 90384; 99211

== ENCOUNTER 2023-10-11 16:00 | Outpatient (CLI) | payer MEDICAID, SELFPAY ==
[2023-10-11 16:10] VITALS: BMI 30.7
[2023-10-11 16:22] VITALS: BP 108/70; PULSE 98
[2023-10-11 16:42] VITALS: BP 109/62; PULSE 95
== END 2023-10-11 16:55 | disposition home or self-care (01) ==
LOC: OPOB 16:05 → OBGYN 16:06
PROVIDERS: Absent Provider Family Medicine; PCP Nurse Practitioner Family; Visit Provider Family Medicine
DX: O26.899 Other specified pregnancy related conditions, unspecified trimester (principal); Z3A.00 Weeks of gestation of pregnancy not specified; H53.9 Unspecified visual disturbance
CPT/HCPCS: 59025; 99211

== ENCOUNTER 2023-12-12 10:56 | Outpatient (CLI) | payer MEDICAID, SELFPAY ==
[2023-12-12] VITALS (7 sets, daily range): BP systolic 120–128; BP diastolic 75–86; PULSE 96–110; BMI 33.7
[2023-12-12 12:10] LABS: Basophils % 0.2 %; Eosinophils # 0.1 10^3/uL (0.0-0.8); Eosinophils % 0.8 %; Hematocrit 38.1 % (36-47); Mean Corpuscular HGB Conc 32.8 g/dL (30-55); Mean Corpuscular Hemoglobin 28.7 pg (27-33); Mean Corpuscular Volume 87.4 fl (85-98); Monocytes # 0.4 10^3/uL (0.2-0.9); Monocytes % 6.9 %; Neutrophils # 4.88 10^3/uL (1.8-7.7); Neutrophils % 76.3 %; Nucleated Red Blood Cells % 0 %; Platelet Count 118 10^3/cmm (157-399); Red Blood Count 4.36 10^6/uL (3.85-5.65); Red Cell Distribution Width 21.7 % (12.1-15.1); White Blood Count 6.39 10^3/uL (3.29-11.43)
[2023-12-12 12:18] LABS: Estmated Average Glucose 88; Hemoglobin A1C 4.7 % (4.0-6.0)
[2023-12-12 12:33] LABS: Bilirubin Urine 1+ (Negative); Blood Urine Trace (Negative); Glucose Urine UA Norm (Normal); Ketones Urine 1+ (Negative); Leukocyte Esterase Urine 2+ (Negative); Nitrate Urine Negative (Negative); Protein Urine Trace (Negative); Urine Appearance Slightly Cloudy (CLEAR); Urine Color Dark Yellow (Yellow); Urobilinogen Urine 1 mg/dL (Negative); pH Urine 5 (5-7)
[2023-12-12 12:34] LABS: Add Urine Culture? No; Add Urine Microscopic? YES; Bacteria Urine 1+ /hpf; Mucus Urine TRACE /hpf; RBC Urine 0-4 /hpf (0-2); Squamous Epithelial Cell Urine 15-25 /hpf (0-5); WBC Urine 25-40 /hpf (0-5)
[2023-12-12 12:37] LABS: Alanine Aminotransferase 12 U/L (0-33); Albumin Level 3.2 g/dL (3.5-5.2); Alkaline Phosphatase 158 U/L (35-105); Anion Gap 14.9 (5-19); Aspartate Amino Transferase 20 U/L (0-32); Blood Urea Nitrogen 7 mg/dL (6-20); Carbon Dioxide 18 mmol/L (22-29); Chloride 110 mmol/L (98-107); Creatinine Clr Calc Pharmacy 149.7439; Globulin 2.2 g/dL (1.3-4.6); Glomerular Filtration Rate 118.2 mL/min (90-130); Glucose 100 mg/dL (65-115); Osmolality Calculated 286 mOsm/kg (285-295); Potassium 3.9 mmol/L (3.5-5.1); Sodium 139 mmol/L (136-145); Total Bilirubin 0.2 mg/dL (0.15-1.2); Total Protein 5.4 g/dL (6.6-8.7); Uric Acid 4.5 mg/dL (2.4-5.7)
[2023-12-12 12:38] LABS: Urine Creatinine 279 mg/dL (28-217)
[2023-12-12 12:39] LABS: Urine Protein Random 55 mg/dL
[2023-12-12 13:00] LABS: Calcium 8.5 mg/dL (8.5-10.5)
== END 2023-12-12 13:19 | disposition home or self-care (01) ==
LOC: OPOB 11:38 → OBGYN 11:45
PROVIDERS: PCP Nurse Practitioner Family; Visit Provider Family Medicine
DX: O26.899 Other specified pregnancy related conditions, unspecified trimester (principal); Z3A.00 Weeks of gestation of pregnancy not specified
CPT/HCPCS: 36415; 59025; 80053; 81001; 82570; 83036; 84156; 84550; 85025; 99211

== ENCOUNTER 2023-12-12 18:32 | Outpatient (CLI) | payer MEDICAID, SELFPAY ==
[2023-12-12 18:32] VITALS: BMI 33.5
[2023-12-12 18:48] VITALS: BP 119/78; PULSE 102
[2023-12-12 18:55] VITALS: RESP 17
[2023-12-12 18:56] LABS: Nitrazine Paper, PH Negative
[2023-12-12 19:03] VITALS: BP 122/81; PULSE 93
[2023-12-12 19:19] VITALS: BP 119/76; PULSE 98
== END 2023-12-12 19:30 | disposition home or self-care (01) ==
LOC: OPOB 18:34 → OBGYN 18:35
PROVIDERS: PCP Nurse Practitioner Family; Visit Provider Family Medicine
DX: O26.899 Other specified pregnancy related conditions, unspecified trimester (principal); Z3A.00 Weeks of gestation of pregnancy not specified; R10.9 Unspecified abdominal pain
CPT/HCPCS: 59025; 83986; 99211

== ENCOUNTER 2023-12-25 09:00 | Inpatient (IN) | payer MEDICAID, SELFPAY ==
[2023-12-25] VITALS (157 sets, daily range): BP systolic 86–176; BP diastolic 50–98; PULSE 56–133; RESP 15–17; TEMP 36.2–36.3; O2SAT 90–99; BMI 33.5
[2023-12-25] MEDS: dextrose 5%-lactated ringers 1,000 ML 125 ML IV (09:07)
[2023-12-25] MEDS: oxytocin 30 UNIT/500 ML BAG IV (09:08)
[2023-12-25 09:38] LABS: Basophils % 0.1 %; Eosinophils % 0.5 %; Hematocrit 38.6 % (36-47); Lymphocytes # 1.3 10^3/uL (0.8-4.8); Lymphocytes % 16.1 %; Mean Corpuscular HGB Conc 32.9 g/dL (30-55); Mean Corpuscular Hemoglobin 29.2 pg (27-33); Mean Corpuscular Volume 88.7 fl (85-98); Mean Platelet Volume 12.7 fL (7.4-10.4); Monocytes # 0.5 10^3/uL (0.2-0.9); Monocytes % 6.3 %; Neutrophils # 6.02 10^3/uL (1.8-7.7); Neutrophils % 76.4 %; Nucleated Red Blood Cells % 0 %; Platelet Count 102 10^3/cmm (157-399); Red Blood Count 4.35 10^6/uL (3.85-5.65); Red Cell Distribution Width 21.3 % (12.1-15.1); White Blood Count 7.89 10^3/uL (3.29-11.43)
[2023-12-25] MEDS: lactated ringers 1,000 ML 999 ML IV ×2 (11:39→12:44)
[2023-12-25] MEDS: ondansetron 2 mg/ML SDV 2 mL 4 MG IVP ×2 (11:49→16:25)
[2023-12-25] MEDS: ROPivacaine premix 100 MG/50 ML PREMIX 13 MG EPIDURAL (12:33)
--- NOTE | 2023-12-25 12:39 | ANES.PREANE2 ---
Pre-Anesthetic Assessment Height/Weight: Height 1.63 m Weight 88.592 kg Pulse BP Pulse Ox O2 Del Method 92 126/78 98 Room Air 12/25/23 12:35 12/25/23 12:35 12/25/23 12:26 12/25/23 08:31 Epidural Familial anesthetic complications: Previous epidural didn't work Was Beta Manav taken within 24 hours: N/A Was Clonidine taken within 24 hours: N/A Social No alcohol and No tobacco Exam alert, oriented x 3, clear to auscultation bilaterally and regular rate & rhythm Airway Mallampati: Class II Dentition: full Pulmonary Asthma Anesthetic Plan ASA status: 2 Anesthesia: Regional (specify below) Risk of > 500 ml blood loss (7ml/kg in children): Yes, adequate IV access and fluids planned Medications/Allergies Home Medications Medication Instructions Recorded Confirmed Last Taken Type L norgest/E estradiol-E estrad 1 tab PO DAILY 06/21/22 11/22/22 11/22/22 History 0.15 mg-30 mcg (84)/10 mcg(7) tabs,3mos (Ashlyna) citalopram 10 mg tablet 20 mg PO DAILY 11/22/22 11/22/22 11/22/22 History ibuprofen 200 mg tablet 800 mg PO Q6H PRN Pain 11/22/22 11/22/22 Unknown History galcanezumab-gnlm 120 mg/mL 120 mg SUBCUT ONCE #1 mL 02/09/23 Unknown Rx subcutaneous pen injector (Emgality Pen) galcanezumab-gnlm 120 mg/mL 240 mg (2 mL) SUBCUT ONCE #2 mL 02/09/23 Unknown Rx subcutaneous pen injector (Emgality Pen) olanzapine 5 mg tablet 5 mg PO DAILY 02/09/23 Unknown History Allergies Allergy/AdvReac Type Severity Reaction Status Date / Time doxycycline Allergy Severe anaphlactic Verified 11/22/22 15:40 Sulfa (Sulfonamide Allergy Severe anaphlactic Verified 11/22/22 15:40 Antibiotics) hydrocodone AdvReac Itching, Verified 11/22/22 15:40 rash Current Medications Generic Name Dose Route Start Last Admin Trade Name Freq PRN Reason Stop Dose Admin Oxytocin 30 unit in 500 mls @ 600 mls/hr 12/25/23 08:31 12/25/23 10:50 Pitocin IV 9 mls/hr .Q50M PRN 9 mls/hr After delivery of Titration Protocol Dextrose/Lactated Ringer's 1,000 mls @ 125 mls/hr 12/25/23 08:45 12/25/23 11:39 Dextrose 5%-Lactated Ringers IV 0 mls/hr .Q8H NATASHA Infusion Lactated Ringer's 1,000 mls @ 999 mls/hr 12/25/23 11:24 12/25/23 11:39 Lactated Ringers IV 999 mls/hr .Q1H1M PRN Administration See label comments Ondansetron HCl 4 mg 12/25/23 08:31 12/25/23 11:49 Ondansetron 2 Mg/Ml Sdv 2 Ml IVP 4 mg Q4H PRN Administration NAUSEA AND VOMITING PFSH Anesthesia Medical History Anxiety and depression Has a lot of anxiety as well as depression especially . Has been on and off various medications in the past and always stops them as she feels better. Does not have a therapist. Has not followed up with behavioral health care despite recommendation -Currently using medical marijuana for this Asthma Reports being diagnosed with asthma as a child. Has been using albuterol inhaler as needed during the . 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 Reports her partner has been tested negative. History of molar (01/21/16) 01/21/2016: Identified on path from D&C. Followed with serial hCGs. Had repeat D&C in 2017 in [place] due to leftover molar tissue . No pertinent past medical history Denies diabetes, hypertension, seizures, DVT/PE. PMD: none Scoliosis Surgical History History of appendectomy (~12/2009) Open procedure via right lower quadrant incision History of breast augmentation (~03/2016) Bilateral silicone gel implants, placed below muscle History of colonoscopy 04/2021 History of dilation and curettage (01/21/16) Diagnoses: Missed at [address] Holman at [facility]. Pathology showed partial molar . History of esophagogastroduodenoscopy (EGD) 04/2021 History of hysteroscopy (~2016) With D&C. Performed in [place] by Dr. Contreras. States was due to leftover molar tissue . History of oral surgery (~2010) [place] teeth removed Hx of tonsillectomy (~2004) With adenoidectomy S/P hernia surgery Family History Mother Stroke Grandfather Diabetes Maternal Hypertension Maternal Family/Other Diabetes Paternal aunt Grandmother Hypertension Maternal Social History Smoking and tobacco/nicotine status: current every day tobacco/nicotine user (Vapes) e-cigarettes E-Cigarette Details: vaporizer device Substance/Drug Use: never Female Reproductive History : 7 Data Anesthesia 12/25/23 08:37 Short CBC 12/25/23 Range/Units 08:37 WBC 7.89 (3.29-11.43) 10^3/uL Hgb 12.70 (11.27-16.99) g/dL Hct 38.6 (36-47) % MCV 88.7 (85-98) fl Plt Count 102 L (157-399) 10^3/cmm Neut % (Auto) 76.4 % Neut # (Auto) 6.02 (1.8-7.7) 10^3/uL Blood Bank 12/25/23 08:37 Blood Type B Negative Rho(D) Type Rh negative Cardiac Studies: Echocardiogram 12/14/22 Cardiac Event Monitor 12/13/22 Holter Monitor 03/16/22
--- NOTE | 2023-12-25 12:40 | ANES.PROC ---
Anesthesia Procedures Procedure/Date: 12/25/23 Epidural: Time Out Performed: Yes Consents Signed: Procedure Consent Consent: requested by attending/covering physician, from patient, from other, risks and benefits reviewed and patient agrees to proceed Lumbar Level: L3-L4 Epidural position: sitting Epidural procedure: sterile prep of area, 1% lidocaine to numb the area, 18 g needle, negative for paresthesia passed, neg for paresthesia, test dose given, 1.5% xylocaine 1:200k epi (5 cc), 0.2% Ropivacaine bolus ml (5 ), placed PCEA, no systemic response, sterile dressing applied, L.U.D. no apparent complications and 0.2% Ropiavacaine @ mls/hr (13) Additional Comments: LOYDA at 6.5 cm, threaded to 13 cm
--- NOTE | 2023-12-25 14:28 | PM.MISC ---
Miscellaneous Note Note: Called for residual lower abdominal contraction pain. patient states pain is no longer over her entire abdomen but is still present b/l at her inferior stomach. Bolus of bupivicaine 0.25% 20 cc produced a decrease in pain of contractions from 5/10 to 4/10. Pulled catheter back a centimter to potentially help with downward spread. She says this happened last time, but it only worked on one side. Replaced epidural per patient request, LOYDA at 6 cm, threaded to 12 cm. Patient reported comfortable contraction afterwards
[2023-12-25] MEDS: citric acid-sodium citrate 30 mL UDC PO (18:01)
[2023-12-25] MEDS: metoclopramide 5 mg/mL SDV 2 mL 10 MG IVP (18:01)
[2023-12-25] MEDS: famotidine 20 mg/2 mL INJ IVP (18:01)
--- NOTE | 2023-12-25 19:10 | P.HP_ITS ---
Providers/Chief Complaint 2 Admitting Physician: Claudia Durand MD Primary Care Provider: Chanell Urban Chief Complaint: IOL History of Present Illness Uriel Mcgarry is a 28 year old at 39 weeks 1 day gestation who presents for induction of labor secondary to suspected macrosomia. The patient's fundal height has been measuring larger than dates and a third trimester ultrasound revealed an abdominal circumference greater than the 99th percentile. Estimated weight 8 pounds 14 ounces. The patient does have a history of delivering an 8 pound 10 ounce infant. We have discussed the risk benefits alternatives and she has decided to proceed with induction of labor. Review of Systems 2 Narrative: Good movement, no bleeding, no contractions, no loss of fluid, positive edema Medications/Allergies Home Medications Medication Instructions Recorded Confirmed Last Taken Type L norgest/E estradiol-E estrad 1 tab PO DAILY 06/21/22 11/22/22 11/22/22 History 0.15 mg-30 mcg (84)/10 mcg(7) tabs,3mos (Ashlyna) citalopram 10 mg tablet 20 mg PO DAILY 11/22/22 11/22/22 11/22/22 History ibuprofen 200 mg tablet 800 mg PO Q6H PRN Pain 11/22/22 11/22/22 Unknown History galcanezumab-gnlm 120 mg/mL 120 mg SUBCUT ONCE #1 mL 02/09/23 Unknown Rx subcutaneous pen injector (Emgality Pen) galcanezumab-gnlm 120 mg/mL 240 mg (2 mL) SUBCUT ONCE #2 mL 02/09/23 Unknown Rx subcutaneous pen injector (Emgality Pen) olanzapine 5 mg tablet 5 mg PO DAILY 02/09/23 Unknown History Allergies Allergy/AdvReac Type Severity Reaction Status Date / Time doxycycline Allergy Severe anaphlactic Verified 11/22/22 15:40 Sulfa (Sulfonamide Allergy Severe anaphlactic Verified 11/22/22 15:40 Antibiotics) hydrocodone AdvReac Itching, Verified 11/22/22 15:40 rash PFSH Acute 2 PFSH: Medical History Anxiety and depression Has a lot of anxiety as well as depression especially . Has been on and off various medications in the past and always stops them as she feels better. Does not have a therapist. Has not followed up with behavioral health care despite recommendation -Currently using medical marijuana for this Asthma Reports being diagnosed with asthma as a child. Has been using albuterol inhaler as needed during the . 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 Reports her partner has been tested negative. History of molar (01/21/16) 01/21/2016: Identified on path from D&C. Followed with serial hCGs. Had repeat D&C in 2017 in [place] due to leftover molar tissue . No pertinent past medical history Denies diabetes, hypertension, seizures, DVT/PE. PMD: none Scoliosis Surgical History History of appendectomy (~12/2009) Open procedure via right lower quadrant incision History of breast augmentation (~03/2016) Bilateral silicone gel implants, placed below muscle History of colonoscopy 04/2021 History of dilation and curettage (01/21/16) Diagnoses: Missed at [address]formed [address] Holman at [facility]. Pathology showed partial molar . History of esophagogastroduodenoscopy (EGD) 04/2021 History of hysteroscopy (~2016) With D&C. Performed in [place] by Dr. Contreras. States was due to leftover molar tissue . History of oral surgery (~2010) [place] teeth removed Hx of tonsillectomy (~2004) With adenoidectomy S/P hernia surgery Family History Mother Stroke Grandfather Diabetes Maternal Hypertension Maternal Family/Other Diabetes Paternal aunt Grandmother Hypertension Maternal Social History Smoking and tobacco/nicotine status: current every day tobacco/nicotine user (Vapes) e-cigarettes E-Cigarette Details: vaporizer device Substance/Drug Use: never Female Reproductive History: : 7 Vitals/I&O/Wt Last Vital Signs Pulse 79 12/25/23 17:37 BP 124/61 12/25/23 17:37 Pulse Ox 98 12/25/23 14:52 O2 Del Method Non-Rebreather 12/25/23 15:29 O2 Flow Rate 10 12/25/23 15:29 12/25/23 12/25/23 12/25/23 06:59 14:59 22:59 Intake Total 1325.200 / 1325.200 0 / 1325.200 Output Total 250 / 250 Balance 1325.200 / 1325.200 -250 / 1075.200 Weight last 48 hrs Weight 88.592 kg Physical Exam 2 Narrative: Alert and oriented, heart regular rate and rhythm, lungs clear to auscultation bilaterally, abdomen is gravid and nontender, extremities have 2+ edema but no calf tenderness Urinary Catheter Management: Mondragon: Cath Placed During This Visit: yes Reason for Continuing Indwelling Catheter: Required Immobilization for Trauma or Surgery or Anesthesia Urinary Catheter Date of Insertion: 12/25/23 Urinary Catheter Time of Insertion: 13:40 Data 12/25/23 08:37 Other data: The patient had routine care at [facility]. The was complicated by macrosomia in the third trimester. labs: Blood type B- antibody negative, hepatitis B nonreactive hepatitis C nonreactive, HIV nonreactive, rubella immune, GC chlamydia negative, RPR nonreactive, UDS negative, Q brii low risk, she failed her 1 hour but passed her 3-hour glucose tolerance test, she was GBS negative. A&P Assessment and plan (1) with 39 completed weeks gestation: Expectant management of labor and delivery (2) macrosomia during in third trimester: Attestations 2 Medical Necessity Statement*: Expectant management of labor and delivery Coding Level of Care Code Acute Code for Chg Fwd Diagnoses with 39 completed weeks gestation Z3A.39 macrosomia during in third trimester O36.63X0
--- NOTE | 2023-12-25 19:18 | PM.OP ---
Operative Report Date of procedure: December 25, 2023 Procedure done: Primary low-transverse section Via Pfannenstiel skin incision Specimens removed/disposition: OP Vertex male weight 9 pounds 11 ounces Apgars 8 and 9 Surgeon: Claudia Durand MD Estimated blood loss (mL): 400 IV fluids (mL): 1,200 Urine output (mL): 100 Complications: None Brief History: The patient was being induced secondary to suspected macrosomia. When she was 6-7 cm dilated she underwent artificial rupture of membranes with clear fluid. 2 hours later we were having some nonreassuring heart tones which required many position changes, low baseline in the 90s, and there was absolutely no descent from prior examination. Decision was made to proceed with primary section Procedure: The patient was taken to the OR where epidural anesthesia was bolused. She was prepped and draped in normal sterile fashion in dorsal supine position with a left lateral tilt. After adequate epidural anesthesia was verified a Pfannenstiel skin incision was made and carried through to the underlying layer of fascia sharply. The fascial incision was extended laterally using the Mayos. The fascia was grasped with Yashira clamps and the underlying rectus muscles were dissected off taking care to avoid injury to the underlying tissue. The peritoneum was then entered bluntly and the incision site was manually stretched. The vesicouterine peritoneum was identified and entered sharply using the Metzenbaums. The bladder flap was then created digitally. The bladder blade was then reinserted. Uterine incision was made in a transverse fashion in the lower uterine segment. Amniotic rupture of membranes was performed digitally and clear fluid was noted. The infant was in ROP position and was delivered atraumatically with bulb suction of the mouth and naris at delivery. The cord was clamped and cut. The was handed to the waiting pediatric team. Cord blood was obtained. The placenta was then delivered grossly intact and normal to inspection using fundal pressure. The uterus was then exteriorized from the abdomen and a dry sponge was used to clear the uterus of clots and debris. Uterine incision was then repaired using 0 chromic in a running locked fashion. A second layer of the same suture was used in an imbricating manner. Excellent hemostasis was obtained and the uterus was then returned to the abdomen. Irrigation was used to clear the gutters of clots and debris and the uterine incision was reinspected for hemostasis. The peritoneum was then reapproximated using 4-0 Vicryl in a running fashion. The rectus muscles were gently reapproximated using 4-0 Vicryl in an interrupted fashion. The subfascial tissue was inspected for hemostasis. The fascia was then reapproximated using 0 Vicryl in a running fashion. The subcutaneous tissue was then irrigated. The subcutaneous tissue was then reapproximated using 4-0 Vicryl in a running fashion. The skin was then reapproximated using 4-0 Vicryl in a running fashion on a Deandre needle. Steri-Strips and a pressure bandage were applied patient went to recovery in good condition. Sponge instrument and needle counts were correct. There were no complications
[2023-12-25] MEDS: ketorolac 30 mg/mL INJ IVP (20:30)
[2023-12-25] MEDS: acetaminophen 325 mg Tablet 650 MG PO (21:09)
--- NOTE | 2023-12-25 22:03 | PC.NURSE ---
This RN and Jed Chandler used thermometer to take patient temperature in PACU Q5min throughout PACU time. Thermometers would not read patient temperature due to patient being cold. Extra blankets from warmer placed on patient and around head with baby and mother faces exposed. Jovanny hugger applied at 1924. Patient warm to touch at 2014 and did not report feeling cold or ay other symptoms. Bleeding checked by this RN to rule out excessive blleding/ blood loss. Patient taken to room at 2014 with jovanny hugger on bed. Chele Muñiz CRNA notified.
[2023-12-26] VITALS (76 sets, daily range): BP systolic 95–121; BP diastolic 50–73; PULSE 81–119; RESP 15–17; TEMP 36.8–36.9; O2SAT 92–97
[2023-12-26] MEDS: dextrose 5%-lactated ringers 1,000 ML 125 ML IV (00:30)
[2023-12-26] MEDS: ketorolac 30 mg/mL INJ IVP ×3 (02:22→13:00)
[2023-12-26] MEDS: sodium chloride 0.9% 500 ML 999 ML IV (04:36)
[2023-12-26] MEDS: simethicone 80 mg Chew PO (05:17)
[2023-12-26] MEDS: lanolin oint 7 gm 1 APPLIC TOPICAL (06:33)
[2023-12-26 06:46] LABS: Hematocrit 30.4 % (36-47); Mean Corpuscular HGB Conc 32.6 g/dL (30-55); Mean Corpuscular Hemoglobin 29.3 pg (27-33); Mean Corpuscular Volume 89.9 fl (85-98); Mean Platelet Volume 11.8 fL (7.4-10.4); Platelet Count 92 10^3/cmm (157-399); Red Blood Count 3.38 10^6/uL (3.85-5.65); Red Cell Distribution Width 21.2 % (12.1-15.1); White Blood Count 8.28 10^3/uL (3.29-11.43)
[2023-12-26] MEDS: oxyCODONE-APAP 5-325 mg Tablet PO ×4 (07:54→22:10)
--- NOTE | 2023-12-26 14:40 | ANE.PACU2 ---
Inpatient post-anesthesia follow up: Vital signs: Temperature 98.5 F Pulse Rate 92 Respiratory Rate 16 Blood Pressure 110/63 Pulse Oximetry 95 Oxygen Delivery Me thod Room Air Oxygen Flow Rate 10 Fraction of Inspir ed Oxygen Hydration adequate: Yes Nausea and vomiting: No Pain level: 2 Mental status: Baseline Additional Comments: no known complications Epidural Start/End: Epidural Start Date: 12/25/23 Epidural Start Time: 12:16 Epidural End Date: 12/25/23 Epidural End Time: 19:25
[2023-12-26] MEDS: docusate sodium 100 mg Capsule PO (17:36)
[2023-12-26] MEDS: ibuprofen 800 mg tablet PO (21:36)
[2023-12-27] VITALS (7 sets, daily range): BP systolic 112–121; BP diastolic 70–78; PULSE 79–103; RESP 16–17; TEMP 36.6–36.7
[2023-12-27] MEDS: oxyCODONE-APAP 5-325 mg Tablet PO ×4 (03:06→17:44)
[2023-12-27] MEDS: PRENATAL VIT NO.130/IRON/FOLIC 1 EACH TABLET PO (09:15)
[2023-12-27] MEDS: docusate sodium 100 mg Capsule PO ×2 (09:15→17:44)
[2023-12-27] MEDS: ibuprofen 800 mg tablet PO ×2 (09:15→13:59)
--- NOTE | 2023-12-27 16:47 | P.PN_ITS ---
Subjective 2 Subjective: DOS 12/26/2023 Postop day 0-1, doing well. She has not passed any flatus and has not yet been up to shower and change the pressure dressing. She has walked once in the hallway. Vitals/I&O/Wt Last Vital Signs Temp 98.0 F 12/27/23 16:05 Pulse 79 12/27/23 16:05 Resp 16 12/27/23 11:30 BP 121/78 12/27/23 16:05 Pulse Ox 97 12/26/23 22:14 O2 Del Method Room Air 12/27/23 16:05 O2 Flow Rate 10 12/25/23 15:29 Physical Exam 2 Narrative: Alert and oriented, sitting up in bed, heart regular rate and rhythm, lungs clear to auscultation bilaterally, abdomen is soft and nontender, fundus is firm, pressure bandage is clean dry and intact, extremities have 2+ edema but no calf tenderness Urinary Catheter Management: Mondragon: Cath Placed During This Visit: yes, but has since been removed by the nurse Reason for Continuing Indwelling Catheter: Decision to DC Catheter Urinary Catheter Date of Insertion: 12/25/23 Urinary Catheter Time of Insertion: 13:40 Date Urinary Catheter Removed: 12/26/23 Time Urinary Catheter Discontinued: 09:50 Data 12/26/23 06:38 A&P Assessment and plan (1) Status post primary low transverse section: Postop day 0-1 doing well. Encourage ambulation, when the patient gets up to shower this evening we will have her take off the pressure bandage. Continue routine postoperative care. Attestations 2 Medical Necessity Statement*: Routine postoperative care Coding Level of Care Code Acute Code for Chg Fwd Diagnoses Status post primary low transverse section Z98.891
--- NOTE | 2023-12-27 16:52 | PM.DCS ---
Discharge Providers Date of Admission: 12/25/23 09:00 Date of Discharge: December 27, 2023 Attending Provider at Admission: Claudia Durand MD Attending Provider at Discharge: Claudia Durand MD Primary Care Provider: Chanell Urban Diagnoses at Discharge Discharge Diagnosis (1) Status post primary low transverse section: Status: Acute Reason for Visit Reason for Visit: IOL Hospital Course Hospital Course This is a 28-year-old G6 now P4 who had a primary section for nonreassuring heart tones and failure to descend. The weighed 9 pounds 11 ounces. She has done well postoperatively. She is ambulating, tolerating a regular diet, has decreased vaginal bleeding and has good pain control on oral medications. Physical Exam Narrative: Alert and oriented, sitting up in bed, heart regular rate and rhythm, lungs clear to auscultation bilaterally, abdomen is soft with appropriate postoperative tenderness, incision is clean dry and intact with Steri-Strips in place, extremities have 2+ edema but no calf tenderness Urinary Catheter Management: Mondragon: Cath Placed During This Visit: yes, but has since been removed by the nurse Reason for Continuing Indwelling Catheter: Decision to DC Catheter Urinary Catheter Date of Insertion: 12/25/23 Urinary Catheter Time of Insertion: 13:40 Date Urinary Catheter Removed: 12/26/23 Time Urinary Catheter Discontinued: 09:50 Discharge Data Studies Completed and Pending Laboratory Results WBC 8.28 10^3/uL (3.29-11.43) 12/26/23 06:38 RBC 3.38 10^6/uL (3.85-5.65) L 12/26/23 06:38 Hgb 9.90 g/dL (11.27-16.99) L 12/26/23 06:38 Hct 30.4 % (36-47) L 12/26/23 06:38 MCV 89.9 fl (85-98) 12/26/23 06:38 MCH 29.3 pg (27-33) 12/26/23 06:38 MCHC 32.6 g/dL (30-55) 12/26/23 06:38 RDW 21.2 % (12.1-15.1) H 12/26/23 06:38 Plt Count 92 10^3/cmm (157-399) L 12/26/23 06:38 MPV 11.8 fL (7.4-10.4) H 12/26/23 06:38 Neut % (Auto) 76.4 % 12/25/23 08:37 Lymph % (Auto) 16.1 % 12/25/23 08:37 [place] % (Auto) 6.3 % 12/25/23 08:37 Eos % (Auto) 0.5 % 12/25/23 08:37 Baso % (Auto) 0.1 % 12/25/23 08:37 Neut # (Auto) 6.02 10^3/uL (1.8-7.7) 12/25/23 08:37 Lymph # (Auto) 1.3 10^3/uL (0.8-4.8) 12/25/23 08:37 [place] # (Auto) 0.5 10^3/uL (0.2-0.9) 12/25/23 08:37 Eos # (Auto) 0.0 10^3/uL (0.0-0.8) 12/25/23 08:37 Baso # (Auto) 0.0 10^3/uL (0.0-0.1) 12/25/23 08:37 Nucleated RBC % (auto) 0 % 12/25/23 08:37 Nucleated RBCs # 0.0 /100WBC 12/25/23 08:37 Blood Type B Negative 12/25/23 08:37 Rho(D) Type Rh negative 12/25/23 08:37 Antibody Screen Positive 12/25/23 08:37 Antibody Identification Anti-D 12/25/23 08:37 Screen Negative (Negative) 12/26/23 06:38 Vitals Last Vital Signs Temp 98.0 F 12/27/23 16:05 Pulse 79 12/27/23 16:05 Resp 16 12/27/23 11:30 BP 121/78 12/27/23 16:05 Pulse Ox 97 12/26/23 22:14 O2 Del Method Room Air 12/27/23 16:05 O2 Flow Rate 10 12/25/23 15:29 Discharge Plan Discharge Patient Disposition: Home Condition: Stable Prescriptions: New ibuprofen 800 mg Tablet 800 mg PO TID PRN (Reason: Abdominal Discomfort) Qty: 40 0RF oxycodone-acetaminophen 5-325 mg Tablet 1 - 2 tab PO Q4H PRN (Reason: Moderate To Severe Pain) Qty: 12 0RF docusate sodium 100 mg Capsule 100 mg PO BID Qty: 60 0RF Continued olanzapine 5 mg tablet 5 mg PO DAILY citalopram 10 mg tablet 20 mg PO DAILY ferrous sulfate 27 mg iron Tablet 27 mg PO DAILY Discharge Orders: Discharge Order (Routine); Ordered 12/27/23 Ordered By: Claudia Durand Referrals: Claudia Durand MD [Physician] - 01/03/24 1:30 pm (6 week appointment is scheduled february 06 @1:[address] Durand.) Discharge Diet: Usual diet Discharge Activity: Limit activity as instructed Patient Instructions: Depression (DC), Opioid Safety (DC), Preeclampsia and Eclampsia After Delivery (GEN), Hemorrhage (DC), OB - Hoang/Kizzy, OB Discharge Report, OB Food/Drug Interaction Guide, OB Care at Home, Opioid Safety, Abnormal Bleeding Discharge Attestations Time Spent in Discharge Care*: less than 30 min Quality Metrics Clinical Quality Measures [ No reported AMI, CVA or VTE this stay] Coding Level of Care Code Acute Code for Chg Fwd Diagnoses Status post primary low transverse section Z98.891
== END 2023-12-27 18:00 | disposition home or self-care (01) | DRG 788 ==
LOC: OBGYN 18:40 → OPOB 12-26 07:11
PROVIDERS: Admitting Provider Family Medicine; PCP Nurse Practitioner Family; Visit Provider Family Medicine
PROC: 10D00Z1 Extraction of Products of Conception, Low, Open Approach (ICD-10-PCS; CPT 59514; principal; 2023-12-25 18:00)
DX: O36.63X0 Maternal care for excessive fetal growth, third trimester, not applicable or unspecified (principal); O99.334 Smoking (tobacco) complicating childbirth; F17.200 Nicotine dependence, unspecified, uncomplicated; Z3A.39 39 weeks gestation of pregnancy; Z37.0 Single live birth; O36.8330 Maternal care for abnormalities of the fetal heart rate or rhythm, third trimester, not applicable or unspecified
CPT/HCPCS: 36415; 36430; 51702; 59025; 59409; 80503; 85025; 85027; 85460; 86850; 86870; 86900; 90384; 90471; 96374; 96376; 98960; J1885; J2250; J2274; J2405; J2590; J2765; J2795; J3490; J7030; J7040; J7120; J7121

== ENCOUNTER → 2024-05-25 18:22 | Outpatient (BNVA) | payer MEDICAID, SELFPAY | PROVIDERS: PCP Nurse Practitioner Family; Visit Provider Emergency Medicine | DX: R05.9 Cough, unspecified (principal) | CPT/HCPCS: 87071; 87400; 87426; 87880 ==

== ENCOUNTER 2024-05-29 13:48 | Outpatient (CLI) | payer MEDICAID, SELFPAY ==
[2024-05-29 16:17] LABS: Adenovirus Not Detected (NOT DETECT); Chlamydia Pneumoniae Not Detected (NOT DETECT); Coronavirus 229E,HKU1,NL63,OC4 Not Detected (NOT DETECT); Human Metapneumovirus Not Detected (NOT DETECT); Human Rhinovirus/Enterovirus Detected (NOT DETECT); Influenza A Not Detected (NOT DETECT); Influenza A H1 Not Detected (NOT DETECT); Influenza A H1-2009 Not Detected (NOT DETECT); Influenza A H3 Not Detected (NOT DETECT); Influenza B Not Detected (NOT DETECT); Mycoplasma Pneumoniae Not Detected (NOT DETECT); Parainfluenza Virus Type 1 Not Detected (NOT DETECT); Parainfluenza Virus Type 2 Not Detected (NOT DETECT); Parainfluenza Virus Type 3 Not Detected (NOT DETECT); Parainfluenza Virus Type 4 Not Detected (NOT DETECT); Respiratory Syncytial Virus A Not Detected (NOT DETECT); Respiratory Syncytial Virus B Not Detected (NOT DETECT); SARS-COV-2 Not Detected (NOT DETECT)
== END 2024-05-29 13:49 | disposition home or self-care (01) ==
LOC: LAB 13:52
PROVIDERS: PCP Nurse Practitioner Family; Visit Provider Nurse Practitioner Family
DX: R05.9 Cough, unspecified (principal)
CPT/HCPCS: 87486; 87581; 87633

== ENCOUNTER 2024-06-05 08:31 | Outpatient (CLI) | payer MEDICAID, SELFPAY ==
--- NOTE | 2024-06-05 08:35 | MR_ITS ---
WS: [id number] MRI BRAIN WITHOUT CONTRAST HISTORY: FACIAL NUMBNESS/HX OF TRANSIENT ISCHEMIC ATTACK COMPARISON: 12/08/2022 TECHNIQUE: Diffusion imaging, multiplanar T1, T2 and FLAIR imaging obtained. No evidence for acute infarct or hemorrhage. Neff-white matter differentiation is normal. No remote or acute infarcts are volume loss. Ventricles and extra-axial spaces are normal. No inferior displacement of cerebellar tonsils. The sella turcica and pituitary gland are unremarkabl e. Dural venous sinuses and [place] demonstrate no abnormality on this unenhanced studies. Paranasal sinuses: Clear. Mastoid air cells: Normal. Calvarium and scalp: Intact. MR/MR head wo con* [id number] IMPRESSION: 1. Unremarkable noncontrast MRI brain. 2. Stable MRI brain since 12/08/2022. No signal abnormalities.
== END 2024-06-05 08:32 | disposition home or self-care (01) ==
LOC: RAD 08:32
PROVIDERS: PCP Nurse Practitioner Family; Visit Provider Nurse Practitioner Family
DX: R20.9 Unspecified disturbances of skin sensation (principal); Z86.73 Personal history of transient ischemic attack (TIA), and cerebral infarction without residual deficits
CPT/HCPCS: 70551

== ENCOUNTER 2024-07-10 09:45 | Outpatient (CLI) | payer MEDICAID, SELFPAY ==
[2024-07-10 12:12] LABS: Adenovirus Not Detected (NOT DETECT); Chlamydia Pneumoniae Not Detected (NOT DETECT); Coronavirus 229E,HKU1,NL63,OC4 Not Detected (NOT DETECT); Human Metapneumovirus Not Detected (NOT DETECT); Human Rhinovirus/Enterovirus Detected (NOT DETECT); Influenza A Not Detected (NOT DETECT); Influenza A H1 Not Detected (NOT DETECT); Influenza A H1-2009 Not Detected (NOT DETECT); Influenza A H3 Not Detected (NOT DETECT); Influenza B Not Detected (NOT DETECT); Mycoplasma Pneumoniae Not Detected (NOT DETECT); Parainfluenza Virus Type 1 Not Detected (NOT DETECT); Parainfluenza Virus Type 2 Not Detected (NOT DETECT); Parainfluenza Virus Type 3 Not Detected (NOT DETECT); Parainfluenza Virus Type 4 Not Detected (NOT DETECT); Respiratory Syncytial Virus A Not Detected (NOT DETECT); Respiratory Syncytial Virus B Not Detected (NOT DETECT); SARS-COV-2 Not Detected (NOT DETECT)
== END 2024-07-10 09:46 | disposition home or self-care (01) ==
PROVIDERS: PCP Nurse Practitioner Family; Visit Provider Nurse Practitioner Family
DX: R05.8 Other specified cough (principal); J34.89 Other specified disorders of nose and nasal sinuses
CPT/HCPCS: 36415; 87486; 87581; 87633

== ENCOUNTER 2024-10-11 17:16 | Emergency (ER) | payer MEDICAID, SELFPAY ==
--- NOTE | 2024-10-11 17:18 | XRR_ITS ---
PROCEDURE INFORMATION: Exam: XR Chest Exam date and time: 10/11/2024 6:08 PM Age: 29 years old Clinical indication: Cough and fever; Chest congestion; Cough; Fever TECHNIQUE: Imaging protocol: Radiologic exam of the chest. Views: 1 view. COMPARISON: CR XR chest 1V portable [id number] 11/22/2022 4:29 PM FINDINGS: Lungs: Unremarkable. No consolidation. Pleural spaces: Unremarkable. No pleural effusion. No pneumothorax. Heart/Mediastinum: Unremarkable. No cardiomegaly. Bones/joints: Unremarkable. XR/XR chest 1V portable [id number] IMPRESSION: No acute findings.
[2024-10-11 17:36] VITALS: BP 108/74; PULSE 130; RESP 16; TEMP 37.5; O2SAT 96; BMI 23.1
[2024-10-11 18:38] LABS: Covid PCR NEGATIVE (Negative); Influenza A POSITIVE (Negative); Influenza B NEGATIVE (Negative); Respiratory Syncytial Virus Ce NEGATIVE (Negative)
[2024-10-11 18:44] VITALS: PULSE 116; RESP 18; O2SAT 97
[2024-10-11] MEDS: ipratropium-albuterol 3 mL Neb INHALATION (18:44)
--- NOTE | 2024-10-11 18:46 | ED_ITS ---
HPI - URI/Sore Throat General: Chief Complaint: Upper Respiratory Infection Stated Complaint: chest conjestion Time Seen by Provider: 10/11/24 17:54 Source: patient Mode of arrival: ambulatory Limitations: no limitations History of Present Illness: Patient is a 29-year-old female with no pertinent past medical history who reports to the emergency department complaining of worsening cough. States cou penelope has been here since Monday, where she was diagnosed with flu A. States that she would like to be tested for COVID as her son tested positive for novel coronavirus. She is also reporting mild hemoptysis that has been intermittent. She has been using breathing treatments at home states these have not been helping that much. Also states she tried taking some ipratropium bromide. Also reporting some chest congestion and fevers. She is not reporting any severe shortness of breath, chest pain, or any other symptoms. MD elicited complaint: fever Onset (ago): day(s) Consistency: constant and progressively worsening Severity: moderate Description of mucous: bloody Able to tolerate fluids by mouth: Yes Exacerbating factors: deep breaths Relieving factors: nothing Context: sick contacts Associated symptoms: Reports fever(s); Deny abdominal pain, chills, chest pain, diarrhea, ear or mastoid pain, heada kierra(s), nausea or vomiting Treatments prior to arrival: other (Breathing treatments, ipratropium bromide) Related Data Previous Rx's Medication Instructions Recorded cephalexin 500 mg capsule 500 mg PO QID #40 caps 10/07/24 albuterol sulfate 90 mcg/actuation 1 inh inhalation Q6H PRN shortness 10/11/24 aerosol inhaler of breath or wheezing #6.7 grams azithromycin 500 mg tablet 500 mg PO DAILY 5 days #5 tabs 10/11/24 prednisone 20 mg tablet 40 mg (2 x 20 mg) PO ONCE 5 days 10/11/24 #10 tabs Allergies Allergy/AdvReac Type Severity Reaction Status Date / Time doxycycline Allergy Severe anaphlactic Verified 10/07/24 13:28 Sulfa (Sulfonamide Allergy Severe anaphlactic Verified 10/07/24 13:28 Antibiotics) hydrocodone AdvReac Itching, Verified 10/07/24 13:28 rash Review of Systems General: Reports: 10 or more systems reviewed and unremarkable except in HPI and below Const: Reports: fever(s); Denies: chills or fatigue Eyes: Denies: change in vision ENMT: Denies: throat pain, ear or mastoid pain or nasal discharge Card: Denies: chest pain, palpitations, swelling of feet/ankles or lightheadedness Resp: Reports: productive cough, hemoptysis and chest congestion; Denies: dyspnea or wheezing GI: Denies: abdominal pain, nausea, vomiting, diarrhea or constipation : Denies: flank pain, difficulty voiding, dysuria or urinary frequency Musc: Denies: neck pain, back pain or joint pain Skin/Breast: Denies: rash Neuro: Denies: headache(s), numbness in extremities or weakness in extremities PFSH ED PFSH: Medical History Scoliosis No pertinent past medical history Denies diabetes, hypertension, seizures, DVT/PE. PMD: none Anxiety and depression Has a lot of anxiety as well as depression especially . Has been on and off various medications in the past and always stops them as she feels better. Does not have a therapist. Has not followed up with behavioral health care despite recommendation -Currently using medical marijuana for this Asthma Reports being diagnosed with asthma as a child. Has been using albuterol inhaler as needed during the . History of molar (01/21/16) 01/21/2016: Identified on path from D&C. Followed with serial hCGs. Had repeat D&C in 2017 in [place] due to leftover molar tissue . 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 Reports her partner has been tested negative. Surgical History S/P hernia surgery History of colonoscopy 04/2021 History of esophagogastroduodenoscopy (EGD) 04/2021 History of hysteroscopy (~2016) With D&C. Performed in [place] by Dr. Contreras. States was due to leftover molar tissue . History of breast augmentation (~03/2016) Bilateral silicone gel implants, placed below muscle History of dilation and curettage (01/21/16) Diagnoses: Missed at [address] weeks[address]formed [address] Holman at [facility]. Pathology showed partial molar . History of oral surgery (~2010) [place] teeth removed History of appendectomy (~12/2009) Open procedure via right lower quadrant incision Hx of tonsillectomy (~2004) With adenoidectomy Family History Mother Stroke Grandfather Diabetes Maternal Hypertension Maternal Family/Other Diabetes Paternal aunt Grandmother Hypertension Maternal Social History Smoking and tobacco/nicotine status: never used tobacco/nicotine Substance/Drug Use: never Physical Exam Const: COMMON NORMALS: no acute distress, patient oriented x3 and no limitations GENERAL APPEARANCE: cooperative, comfortable and well developed ORIENTATION/CONSCIOUSNESS: Yes awake, Yes oriented to person, Yes oriented to place and Yes oriented to time OTHER: No acute respiratory distress HENMT: COMMON NORMALS: normocephalic, atraumatic, hearing grossly normal bilaterally, moist oral mucous membranes and oropharynx normal HEAD & SCALP: normocephalic and atraumatic Eye: COMMON NORMALS: Equal, round and reactive pupils present, EOMs intact bilaterally and conjunctivae normal CONJUNCTIVA: Yes conjunctivae normal PUPIL: Yes Equal, round and reactive pupils present Neck/C-Spine: COMMON NORMALS: full ROM, supple and no JVD Resp: COMMON NORMALS: normal respiratory effort, No retractions and No use of accessory muscles EFFORT & INSPECTION: Yes Actively coughing hacking OTHER: Mild diffuse expiratory wheezing Cardio: COMMON NORMALS: no JVD, regular rhythm, No clicks present (Cardio), No murmurs present (Cardio) and No rub (Cardio) RATE: tachycardic RHYTHM: regular rhythm Extremity: COMMON NORMALS: normal to inspection, full ROM and capillary refill normal Neuro: COMMON NORMALS: patient oriented x3, moves all extremities, no focal motor deficits and no sensory deficits noted SENSORIUM/ORIENTATION: Yes oriented to person, Yes oriented to place and Yes oriented to time Skin: COMMON NORMALS: no rashes or lesions noted GENERAL SKIN EXAM: no rashes or lesions noted Course Vital Signs: Vital signs: Vital Signs Temperature 99.5 F 10/11/24 17:36 Pulse Rate 116 H 10/11/24 18:44 Respiratory Rate 18 10/11/24 18:44 Blood Pressure 108/74 10/11/24 17:36 Pulse Oximetry 97 10/11/24 18:44 Oxygen Delivery Me thod Room Air 10/11/24 18:44 MDM - URI/Sore Throat Medical Decision Making Patient presented wanting swabbed for coronavirus. Was positive for flu on Monday, states she has been having symptoms for 4 to 5 days. Also notes mild mopped assist. She was negative for coronavirus, still positive for flu a here. Her x-ray did not demonstrate any findings. With her reports hemoptysis likely this is an acute bronchitis versus early developing pneumonia, thus will start on antibiotics and steroids. Make sure that these were okay to do while breast- feeding, and she is encouraged to closely follow-up with primary care to make sure that her condition is improving. Strict return precautions given. There was some mild wheezing noted on exam, she was given a breathing treatment and notes minimal improvement. She is comfortable with discharge plan at this time. Lab Data Radiology Impressions Chest X-Ray 10/11/24 17:18 IMPRESSION: No acute findings. Laboratory Results Coronavirus (PCR) Negative (Negative) 10/11/24 17:50 Influenza A (PCR) Positive (Negative) 10/11/24 17:50 Influenza Type B (PCR) Negative (Negative) 10/11/24 17:50 RSV (PCR) Negative (Negative) 10/11/24 17:50 All radiology interpretation(s) finalized by discharge Discharge Plan Discharge Patient Disposition: Home Clinical Impression: Influenza, Acute bronchitis, Reactive airway disease Condition: Stable Prescriptions: New prednisone 20 mg tablet 40 mg PO ONCE 5 Days Qty: 10 0RF albuterol sulfate 90 mcg/actuation HFA aerosol inhaler 1 inh inhalation Q6H PRN (Reason: shortness of breath or wheezing) Qty: 6.7 0RF azithromycin 500 mg tablet 500 mg PO DAILY 5 Days Qty: 5 0RF No Action cephalexin 500 mg capsule 500 mg PO QID Qty: 40 0RF Discharge Orders: Discharge ED (Routine); Ordered 10/11/24 Ordered By: Husam Martin Referrals: Chanell Urban FNP [Primary Care Provider] - Patient Instructions: Influenza (ED), Acute Bronchitis (ED), Reactive Airways Disease (ED) Activity Restrictions/Additional Instructions: Take azithromycin as prescribed. Take prednisone as prescribed, do not feed for 3 to 4 hours after taking dose. Albuterol inhaler as needed. Follow-up closely with primary care. Please return immediately if your symptoms do not improve or you have any worsening breathing. Coding Level of Care Code ED Marketing Mgr for Adelina Ahuja
== END 2024-10-11 19:30 | disposition home or self-care (01) ==
PROVIDERS: Emergency Medicine; Emergency Provider Physician Assistant; PCP Nurse Practitioner Family
DX: J10.1 Influenza due to other identified influenza virus with other respiratory manifestations (principal); J20.9 Acute bronchitis, unspecified; J45.909 Unspecified asthma, uncomplicated; Z11.52 Encounter for screening for COVID-19
CPT/HCPCS: 36415; 71045; 87637; 94640; 99284